=== PATIENT | male | born 1945 | race Caucasian/White ===

== ENCOUNTER 2017-01-23 09:50 | Inpatient (IN) | payer OTHER, BC ==
[~2017-01-23] VITALS: Ht 180.3 cm; Wt 113.5 kg
[~2017-01-23 09:50] MED LIST: ALLEGRA ALLERG180 MG PO; ALLOPURINOL100 MG PO; ASPIR 8181 M1 PO; ASPIRIN81 M2 PO; CALCITRIOL0.25 MCG PO; CARDIZEM CD,CA180 MG PO; CARDIZEM CD120 MG PO; CARDIZEM120 MG PO; CARDURA4 MG PO; CEFDINIR300 MG PO; CITALOPRAM HBR20 M1 PO; CITALOPRAM HBR20 MG PO; COZAAR25 MG PO; COZAAR50 MG PO; CYCLOBENZAPRINE5 MG PO; Cardizem CD,Cartia XT,Tiazac PO; DILTIAZEM 24HR180 MG PO; DOXAZOSIN MESYLA4 MG PO; EPLERENONE50 M1 PO; FEXOFENADINE HC60 M1 PO; FLUOXETINE HCL20 MG PO; FUROSEMIDE40 MG PO; GABAPENTIN100 MG PO; GABAPENTIN300 MG PO; GLIPIZIDE ER2.5 MG PO; GLIPIZIDE5 MG PO; HYDROCHLOROTHIA25 MG PO; HYDROXYZINE PAM50 MG PO; JANUVIA100 MG PO; KETOCONAZOLE60 GM TP; LABETALOL HCL200 MG PO; LABETALOL HCL300 MG PO; LISINOPRIL10 MG PO; LISINOPRIL20 MG PO; LOSARTAN POTAS100 MG PO; LOSARTAN POTASS50 MG PO; MYSOLINE50 MG PO; NASONEX17 GM BOTH NARES; NEPHRO-VITE,1 TABLET PO; NIACIN ER1000 MG PO; NIACIN500 M1 PO; NIASPAN1000 MG PO; NIFEDICAL XL30 MG PO; NIFEDIPINE ER30 MG PO; OXYCODONE HCL5 MG PO; PANTOPRAZOLE SO40 MG PO; PLAVIX75 MG PO; PRAVACHOL20 MG PO; PRAVASTATIN SOD20 MG PO; PRAVASTATIN SOD40 MG PO; PRAVASTATIN SOD80 MG PO; PRAZOSIN HCL2 MG PO; PRILOSEC20 MG PO; PRIMIDONE50 MG PO; PROCTOZONE-HC30 GM PR; RENVELA800 MG PO; SENNA-TIME S T1 EACH PO; SENSIPAR30 MG PO; SIMVASTATIN20 MG PO; SPIRONOLACTONE25 MG PO; TYLENOL EXTRA500 MG PO; VESICARE5 MG PO; VITAMIN D2000 UNIT PO; WARFARIN SODIUM5 MG PO; WARFARIN SODIUM6 MG PO; ZEMPLAR1 MCG PO; ZYLOPRIM100 MG PO; [UNRECOGNIZED DRUG - OTHER] PO
[2017-03-07] MEDS ORDERED: CARDIZEM CD,CA180 MG PO (10:34)
[2017-03-12] MEDS ORDERED: ALLOPURINOL100 MG PO (08:41)
[2017-03-12] MEDS ORDERED: NIZORAL 2% CREA15 GM TP (08:48)
[2017-03-12] MEDS ORDERED: NASONEX17 GM BOTH NARES (08:50)
[2017-03-12] MEDS ORDERED: NEPHRO-VITE,1 TABLET PO (08:50)
[2017-03-12] MEDS ORDERED: PRILOSEC20 MG PO (08:51)
[2017-03-12] MEDS ORDERED: MYSOLINE50 MG PO (08:51)
[2017-03-12] MEDS ORDERED: COUMADIN6 MG PO (08:54)
[2017-03-12] MEDS ORDERED: XALATAN2.5 ML BOTH EYES (09:53)
[2017-03-13 09:14] LABS: HEMATOCRIT 32.5 % (38.0-50.0); MCH 32.6 PG (29.0-34.0); MCHC 32.6 G/DL (30.0-36.0); MEAN PLAT.VOLUME 10.4 uM^3 (9.0-12.4); PLATELET COUNT 209 K/uL (156-360); RBC DIS.WIDTH-CV 14.9 % (11.8-14.6); RBC DIS.WIDTH-SD 54.5 % (39-53); RED BLOOD COUNT 3.25 M/uL (4.00-5.50); WHITE BLOOD COUNT 8.6 K/uL (4.1-10.2)
[2017-03-13 09:30] LABS: INTER. NORMALIZED RATIO 1.2; PROTHROMBIN TIME 11.8 (9.2-11.2); PTT 29.2 (25-32)
[2017-03-13 09:40] LABS: ANION GAP 13 MEQ/L (2-14); CHLORIDE 95 MEQ/L (99-109); GFR ESTIMATE (CALCULATED) 7 mL/min/; GLUCOSE 155 mg/dL (70-99); POTASSIUM 4.4 MEQ/L (3.7-5.4); SAMPLE HEMOLYSIS CHECK 0; SAMPLE ICTERIC CHECK 0; SAMPLE LIPEMIA CHECK 0; SODIUM 140 MEQ/L (136-147)
[2017-03-13 09:42] VITALS: BP 114/55
[2017-03-13 09:42] LABS: UREA NITROGEN (BUN) 39 mg/dL (9-23)
[2017-03-13 11:29] LABS: METH RESISTANT S AUREUS PCR NEGATIVE (NEGATIVE)
[2017-03-13 11:31] LABS: PROBE CHECK PASS; SPECIMEN PROCESSING CONTROL PASS
[2017-03-13 15:36] VITALS: BP 131/63
[2017-03-13 15:53] VITALS: BP 131/63
[2017-03-13 16:10] VITALS: BP 131/63
[2017-03-13 17:47] LABS: POINT-OF-CARE METER ID UU14188577
[2017-03-13 20:04] VITALS: BP 165/71
[2017-03-13 21:52] LABS: POINT-OF-CARE METER ID UU14188577
[2017-03-13 23:45] VITALS: BP 130/66
[2017-03-14 04:44] VITALS: BP 102/50
[2017-03-14 06:15] LABS: POINT-OF-CARE METER ID UU14188577
[2017-03-14 08:02] VITALS: BP 113/55
[2017-03-14 11:45] VITALS: BP 134/63
[2017-03-14 17:13] VITALS: BP 114/56
[2017-03-14 18:44] LABS: HEMATOCRIT 27.7 % (38.0-50.0); MCH 34.8 PG (29.0-34.0); MCHC 35.4 G/DL (30.0-36.0); MCV 98.2 FL (86-99); PLATELET COUNT 220 K/uL (156-360); RBC DIS.WIDTH-CV 15.3 % (11.8-14.6); RBC DIS.WIDTH-SD 54.1 % (39-53); RED BLOOD COUNT 2.82 M/uL (4.00-5.50)
[2017-03-14 18:46] LABS: WHITE BLOOD COUNT 17.5 K/uL (4.1-10.2)
[2017-03-14 18:54] LABS: CHLORIDE 95 mEq/L (99-109); SODIUM 135 mEq/L (136-147)
[2017-03-14 18:55] LABS: GLUCOSE 184 mg/dL (70-99)
[2017-03-14 18:57] LABS: ANION GAP 20 MEQ/L (2-14)
[2017-03-14 18:59] LABS: GFR ESTIMATE (CALCULATED) 5 mL/min/
[2017-03-14 19:05] LABS: UREA NITROGEN (BUN) 67 mg/dL (9-23)
[2017-03-14 23:46] VITALS: BP 124/61
[2017-03-15] VITALS (7 sets, daily range): BP systolic 107–132; BP diastolic 54–63
[2017-03-15 02:46] LABS: POINT-OF-CARE METER ID UU14188577
[2017-03-15] MEDS ORDERED: TIZANIDINE HCL4 MG PO (08:42)
[2017-03-15] MEDS ORDERED: HYDROCODON-ACE1 EAC7 PO (08:42)
[2017-03-15] MEDS ORDERED: COLACE100 MG PO (08:46)
[2017-03-15 11:56] LABS: POINT-OF-CARE METER ID UU14149397
[2017-03-15 21:44] LABS: POINT-OF-CARE METER ID UU14188577
[2017-03-15 22:20] LABS: HEMATOCRIT 27.1 % (38.0-50.0); MCH 33.6 PG (29.0-34.0); MCHC 33.9 G/DL (30.0-36.0); MCV 98.9 FL (86-99); MEAN PLAT.VOLUME 10.3 uM^3 (9.0-12.4); NRBC (%) 0.1 /100 WBC (0-0); PLATELET COUNT 189 K/uL (156-360); RBC DIS.WIDTH-CV 15.5 % (11.8-14.6); RBC DIS.WIDTH-SD 54.8 % (39-53); RED BLOOD COUNT 2.74 M/uL (4.00-5.50); WHITE BLOOD COUNT 14.2 K/uL (4.1-10.2)
[2017-03-15 22:34] LABS: CHLORIDE 92 mEq/L (99-109); POTASSIUM 5.5 mEq/L (3.7-5.4); SODIUM 131 mEq/L (136-147)
[2017-03-15 22:37] LABS: GLUCOSE 166 mg/dL (70-99)
[2017-03-15 22:38] LABS: ANION GAP 14 MEQ/L (2-14); TOTAL BILIRUBIN 0.6 mg/dL (0.0-1.0)
[2017-03-15 22:40] LABS: ALKALINE PHOSPHATASE 103 IU/L (3-129); GFR ESTIMATE (CALCULATED) 6 mL/min/
[2017-03-15 22:41] LABS: UREA NITROGEN (BUN) 55 mg/dL (9-23)
[2017-03-15 22:42] LABS: DIRECT BILIRUBIN 0.2 mg/dL (0.0-0.3)
[2017-03-16 04:38] VITALS: BP 109/52
[2017-03-16 08:37] VITALS: BP 134/60
[2017-03-16 11:50] LABS: POINT-OF-CARE METER ID UU14188577
[2017-03-16 12:18] VITALS: BP 130/59
[2017-03-16 14:39] LABS: EOSINOPHIL (%) 0.6 % (0-5); EOSINOPHIL COUNT 0.1 K/uL (0-0.3); IMMATURE GRANULOCYTE (%) 0.6 % (0.0-0.7); IMMATURE GRANULOCYTE COUNT 0.1 K/uL; INSTRUMENT ABS NEUTROPHIL CT 10.6 K/uL; LYMPHOCYTE COUNT 1.7 K/uL (1.0-2.8); MCH 34.5 PG (29.0-34.0); MCHC 34.8 G/DL (30.0-36.0); MCV 99.2 FL (86-99); MONOCYTE (%) 12.3 % (3-12); MONOCYTE COUNT 1.8 K/uL (0-0.8); NEUTROPHIL (%) 74.8 % (45-76); NEUTROPHIL COUNT 10.6 K/uL (1.8-6.4); PLATELET COUNT 185 K/uL (156-360); RBC DIS.WIDTH-CV 15.5 % (11.8-14.6); RBC DIS.WIDTH-SD 54.9 % (39-53); RED BLOOD COUNT 2.52 M/uL (4.00-5.50); WHITE BLOOD COUNT 14.2 K/uL (4.1-10.2)
[2017-03-16 14:50] LABS: INTER. NORMALIZED RATIO 1.1; PROTHROMBIN TIME 11.2 (9.2-11.2)
[2017-03-16 14:56] LABS: ANION GAP 14 MEQ/L (2-14); CHLORIDE 91 MEQ/L (99-109); GFR ESTIMATE (CALCULATED) 6 mL/min/; GLUCOSE 144 mg/dL (70-99); POTASSIUM 5.2 MEQ/L (3.7-5.4); SAMPLE HEMOLYSIS CHECK 0; SAMPLE ICTERIC CHECK 0; SAMPLE LIPEMIA CHECK 0; SODIUM 128 MEQ/L (136-147); UREA NITROGEN (BUN) 73 mg/dL (9-23)
[2017-03-16 20:07] VITALS: BP 149/66
[2017-03-16 22:55] LABS: POINT-OF-CARE METER ID UU14188577
[2017-03-16 23:48] VITALS: BP 123/67
[2017-03-17 03:35] VITALS: BP 127/59
[2017-03-17 05:00] LABS: INTER. NORMALIZED RATIO 1.1; PROTHROMBIN TIME 11.6 (9.2-11.2)
[2017-03-17 07:20] LABS: POINT-OF-CARE METER ID UU14188577
[2017-03-17 08:25] VITALS: BP 148/69
[2017-03-17 12:16] VITALS: BP 149/65
[2017-03-17 16:12] VITALS: BP 127/62
[2017-03-17 19:25] VITALS: BP 124/58
[2017-03-17 23:39] VITALS: BP 145/63
[2017-03-18 08:13] VITALS: BP 140/65
[2017-03-18 10:48] LABS: HEMATOCRIT 25.6 % (38.0-50.0); MEAN PLAT.VOLUME 10.7 uM^3 (9.0-12.4); PLATELET COUNT 180 K/uL (156-360); RBC DIS.WIDTH-CV 15.7 % (11.8-14.6); RBC DIS.WIDTH-SD 56.8 % (39-53); RED BLOOD COUNT 2.56 M/uL (4.00-5.50); WHITE BLOOD COUNT 12.4 K/uL (4.1-10.2)
[2017-03-18 11:11] LABS: ANION GAP 19 MEQ/L (2-14); CHLORIDE 94 MEQ/L (99-109); GFR ESTIMATE (CALCULATED) 7 mL/min/; GLUCOSE 148 mg/dL (70-99); POTASSIUM 4.7 MEQ/L (3.7-5.4); SAMPLE HEMOLYSIS CHECK 0; SAMPLE ICTERIC CHECK 0; SAMPLE LIPEMIA CHECK 0; SODIUM 134 MEQ/L (136-147); UREA NITROGEN (BUN) 76 mg/dL (9-23)
[2017-03-18 11:58] LABS: POINT-OF-CARE METER ID UU14149397
[2017-03-18 14:30] LABS: INTER. NORMALIZED RATIO 1.1; PROTHROMBIN TIME 11.5 (9.2-11.2)
[2017-03-18 15:58] VITALS: BP 114/56
[2017-03-18 16:20] LABS: POINT-OF-CARE METER ID UU14149397
[2017-03-18 21:00] LABS: ADD MIUA? YES; BILIRUBIN NEGATIVE; BLOOD LARGE; COLOR YELLOW ((YELLOW)); GLUCOSE (STRIP) NEGATIVE; KETONES NEGATIVE; LEUKOCYTES SMALL; NITRITE NEGATIVE; PROTEIN (STRIP) 100; SPECIFIC GRAVITY 1.014 (1.000-1.030); UROBILINOGEN 0.2 MG/DL (0.2-1.0)
[2017-03-18 21:06] LABS: BACTERIA RARE /HPF; EPITHELIAL CELLS RARE /HPF; MUCUS NONE SEEN /LPF; RED BLOOD CELLS TNTC /HPF (0-5); WHITE BLOOD CELLS TNTC /HPF (0-5)
[2017-03-18 23:11] VITALS: BP 179/79
[2017-03-19 06:00] LABS: POINT-OF-CARE METER ID UU14149397
[2017-03-19 06:22] LABS: INTER. NORMALIZED RATIO 1.1; PROTHROMBIN TIME 11.6 (9.2-11.2)
[2017-03-19 06:44] LABS: ANION GAP 19 MEQ/L (2-14); CHLORIDE 94 MEQ/L (99-109); GFR ESTIMATE (CALCULATED) 6 mL/min/; GLUCOSE 111 mg/dL (70-99); POTASSIUM 4.6 MEQ/L (3.7-5.4); SAMPLE HEMOLYSIS CHECK 0; SAMPLE ICTERIC CHECK 0; SAMPLE LIPEMIA CHECK 0; SODIUM 134 MEQ/L (136-147); UREA NITROGEN (BUN) 96 mg/dL (9-23)
[2017-03-19] MEDS ORDERED: TRAMADOL HCL50 MG PO (12:29)
[2017-03-19 12:39] LABS: POINT-OF-CARE METER ID UU14149397
[2017-03-19] MEDS ORDERED: SODIUM CHLORIDE1 G1 PO (16:48)
[2017-03-19] MEDS ORDERED: ZANAFLEX4 MG PO (16:49)
[2017-03-19] MEDS ORDERED: FLOMAX0.4 MG PO (16:50)
[2017-03-19] MEDS ORDERED: NORCO 5/3251 TABLET PO (16:51)
[2017-03-19] MEDS ORDERED: LORATADINE10 M2 PO ×2 (16:52→16:53)
[2017-03-19] MEDS ORDERED: TYLENOL REGULA325 MG PO (16:52)
[2017-03-19] MEDS ORDERED: BAYER CHEWABLE81 MG PO (16:54)
[2017-03-19] MEDS ORDERED: NOVOLOG 10100 UNITS/ SC (16:54)
[2017-03-19] MEDS ORDERED: FLONASE16 G1 BOTH NARES (16:54)
[2017-03-19] MEDS ORDERED: PRAVASTATIN SOD40 MG PO (16:55)
[2017-03-19] MEDS ORDERED: VITAMIN D2000 UNI1 PO (16:56)
[2017-03-19] MEDS ORDERED: PROTONIX40 MG PO (16:56)
[2017-03-19] MEDS ORDERED: SENSIPAR30 MG PO (16:57)
[2017-03-27 10:08] LABS: POINT-OF-CARE USER ID NUTSLF44
== END 2017-03-19 15:57 | DRG 28 ==
LOC: 2SOUTH 09:50 → 3EAST 03-13 08:37 → 2SOUTH 03-13 10:35 → 3EAST 03-13 15:25
PROVIDERS: Hospitalist; Internal Medicine Nephrology; Neurological Surgery; Physician Assistant
PROC: 00BY0ZZ Excision of Lumbar Spinal Cord, Open Approach (ICD-10-PCS; principal; 2017-03-13)
PROC: 5A1D60Z (ICD-10-PCS; 2017-03-14)
PROC: 0T9B70Z Drainage of Bladder with Drainage Device, Via Natural or Artificial Opening (ICD-10-PCS; 2017-03-16)
DX: D43.4 Neoplasm of uncertain behavior of spinal cord (principal); G83.4 Cauda equina syndrome; I12.0 Hypertensive chronic kidney disease with stage 5 chronic kidney disease or end stage renal disease; N18.6 End stage renal disease; R41.82 Altered mental status, unspecified; E87.1 Hypo-osmolality and hyponatremia; E87.5 Hyperkalemia; E87.70 Fluid overload, unspecified; E11.22 Type 2 diabetes mellitus with diabetic chronic kidney disease; E11.40 Type 2 diabetes mellitus with diabetic neuropathy, unspecified; G95.9 Disease of spinal cord, unspecified; G89.18 Other acute postprocedural pain; I48.91 Unspecified atrial fibrillation; I25.10 Atherosclerotic heart disease of native coronary artery without angina pectoris; G47.33 Obstructive sleep apnea (adult) (pediatric); N40.1 Benign prostatic hyperplasia with lower urinary tract symptoms; R33.9 Retention of urine, unspecified; E78.2 Mixed hyperlipidemia; K59.00 Constipation, unspecified; M10.9 Gout, unspecified; E66.9 Obesity, unspecified; Z68.34 Body mass index [BMI] 34.0-34.9, adult; Z99.2 Dependence on renal dialysis; Z79.01 Long term (current) use of anticoagulants; Z85.528 Personal history of other malignant neoplasm of kidney; Z90.5 Acquired absence of kidney; Z87.891 Personal history of nicotine dependence
CPT/HCPCS: 36415; 70450; 71250; 72020; 74176; 76000; 80048; 80048 91; 80069; 80076; 81003; 82140; 82948; 83605; 85025; 85027; 85610; 85730; 86900; 86901; 87040; 87641; 88307; 88312; 88331; 94799; 97530 GP; J0330; J0690; J0881; J1170; J1580; J1815; J2250; J2405; J2543; J2930; J3010; J3370; J3480; J7050; S0020

== ENCOUNTER 2017-03-08 07:26 | Day surgery (SDC) | payer OTHER, BC ==
[~2017-03-08] VITALS: Ht 180.3 cm; Wt 109.0 kg
[2017-03-08 09:48] LABS: METH RESISTANT S AUREUS PCR NEGATIVE (NEGATIVE)
[2017-03-08 09:49] LABS: PROBE CHECK PASS; SPECIMEN PROCESSING CONTROL PASS
== END 2017-03-08 09:59 | disposition home or self-care (01) ==
LOC: CATH 07:26 → EDSTATUS 08:30 → CATH 09:59
PROVIDERS: Surgery
DX: T82.858A Stenosis of other vascular prosthetic devices, implants and grafts, initial encounter (principal); I12.0 Hypertensive chronic kidney disease with stage 5 chronic kidney disease or end stage renal disease; N18.6 End stage renal disease; Z99.2 Dependence on renal dialysis; E11.22 Type 2 diabetes mellitus with diabetic chronic kidney disease; G47.33 Obstructive sleep apnea (adult) (pediatric); I48.91 Unspecified atrial fibrillation; Z85.53 Personal history of malignant neoplasm of renal pelvis; Z85.828 Personal history of other malignant neoplasm of skin; Z79.01 Long term (current) use of anticoagulants; Z79.82 Long term (current) use of aspirin
CPT/HCPCS: 87641; C1725; C1769; C1894; J1644; J2250; J3010

== ENCOUNTER 2017-03-19 11:52 | Inpatient (IN) | payer OTHER, BC ==
[~2017-03-19] VITALS: Ht 180.3 cm; Wt 105.5 kg
[~2017-03-19 11:52] MED LIST changes: +COLACE100 MG PO; +COUMADIN6 MG PO; +HYDROCODON-ACE1 EAC7 PO; +NIZORAL 2% CREA15 GM TP; +TIZANIDINE HCL4 MG PO; +XALATAN2.5 ML BOTH EYES
[2017-03-19] MEDS ORDERED: TRAMADOL HCL50 MG PO (12:29)
[2017-03-19 16:00] VITALS: BP 110/55
[2017-03-19] MEDS ORDERED: SODIUM CHLORIDE1 G1 PO (16:48)
[2017-03-19] MEDS ORDERED: ZANAFLEX4 MG PO (16:49)
[2017-03-19] MEDS ORDERED: FLOMAX0.4 MG PO (16:50)
[2017-03-19] MEDS ORDERED: NORCO 5/3251 TABLET PO (16:51)
[2017-03-19] MEDS ORDERED: LORATADINE10 M2 PO ×2 (16:52→16:53)
[2017-03-19] MEDS ORDERED: TYLENOL REGULA325 MG PO (16:52)
[2017-03-19 16:53] LABS: POINT-OF-CARE METER ID UU13113720
[2017-03-19] MEDS ORDERED: FLONASE16 G1 BOTH NARES (16:54)
[2017-03-19] MEDS ORDERED: BAYER CHEWABLE81 MG PO (16:54)
[2017-03-19] MEDS ORDERED: NOVOLOG 10100 UNITS/ SC (16:54)
[2017-03-19] MEDS ORDERED: PRAVASTATIN SOD40 MG PO (16:55)
[2017-03-19] MEDS ORDERED: VITAMIN D2000 UNI1 PO (16:56)
[2017-03-19] MEDS ORDERED: PROTONIX40 MG PO (16:56)
[2017-03-19] MEDS ORDERED: SENSIPAR30 MG PO (16:57)
[2017-03-19 19:36] LABS: HEMATOCRIT 25.6 % (38.0-50.0); MCH 33.2 PG (29.0-34.0); MCHC 33.6 G/DL (30.0-36.0); MCV 98.8 FL (86-99); MEAN PLAT.VOLUME 10.6 uM^3 (9.0-12.4); NRBC (%) 0.3 /100 WBC (0-0); PLATELET COUNT 202 K/uL (156-360); RBC DIS.WIDTH-CV 15.7 % (11.8-14.6); RBC DIS.WIDTH-SD 55.4 % (39-53); RED BLOOD COUNT 2.59 M/uL (4.00-5.50)
[2017-03-19 20:05] LABS: ALKALINE PHOSPHATASE 97 IU/L (3-129); ANION GAP 14 MEQ/L (2-14); CHLORIDE 97 MEQ/L (99-109); GLUCOSE 109 mg/dL (70-99); POTASSIUM 4.3 MEQ/L (3.7-5.4); SAMPLE HEMOLYSIS CHECK 0; SAMPLE ICTERIC CHECK 0; SAMPLE LIPEMIA CHECK 0; SODIUM 136 MEQ/L (136-147); TOTAL BILIRUBIN 0.4 MG/DL (0.0-1.0)
[2017-03-19 20:15] LABS: GFR ESTIMATE (CALCULATED) 11 mL/min/; UREA NITROGEN (BUN) 45 mg/dL (9-23)
[2017-03-19 21:32] LABS: POINT-OF-CARE METER ID UU13113720
[2017-03-20] VITALS: BP 115/57
[2017-03-20 04:25] VITALS: BP 135/62
[2017-03-20 08:00] LABS: POINT-OF-CARE METER ID UU13113720; POINT-OF-CARE USER ID AHSSSJB31
[2017-03-20 12:07] LABS: POINT-OF-CARE METER ID UU13113720; POINT-OF-CARE USER ID AHSSSJB31
[2017-03-20 12:41] LABS: INTER. NORMALIZED RATIO 1.3; PROTHROMBIN TIME 13.5 (9.2-11.2)
[2017-03-20 15:50] VITALS: BP 114/58
[2017-03-20 16:31] LABS: POINT-OF-CARE METER ID UU13113720
[2017-03-20 21:22] LABS: POINT-OF-CARE METER ID UU13113720
[2017-03-21 05:58] VITALS: BP 141/65
[2017-03-21 06:32] LABS: POINT-OF-CARE METER ID UU13113720
[2017-03-21 08:39] LABS: EOSINOPHIL (%) 2.6 % (0-5); EOSINOPHIL COUNT 0.3 K/uL (0-0.3); HEMATOCRIT 22.3 % (38.0-50.0); IMMATURE GRANULOCYTE (%) 0.9 % (0.0-0.7); IMMATURE GRANULOCYTE COUNT 0.1 K/uL; INSTRUMENT ABS NEUTROPHIL CT 10.3 K/uL; LYMPHOCYTE COUNT 1.1 K/uL (1.0-2.8); MCH 32.5 PG (29.0-34.0); MCHC 33.2 G/DL (30.0-36.0); MCV 97.8 FL (86-99); MEAN PLAT.VOLUME 10.7 uM^3 (9.0-12.4); MONOCYTE (%) 10.2 % (3-12); MONOCYTE COUNT 1.4 K/uL (0-0.8); NEUTROPHIL (%) 77.6 % (45-76); NEUTROPHIL COUNT 10.3 K/uL (1.8-6.4); PLATELET COUNT 227 K/uL (156-360); RBC DIS.WIDTH-CV 15.5 % (11.8-14.6); RBC DIS.WIDTH-SD 54.8 % (39-53); RED BLOOD COUNT 2.28 M/uL (4.00-5.50); WHITE BLOOD COUNT 13.3 K/uL (4.1-10.2)
[2017-03-21 08:50] LABS: INTER. NORMALIZED RATIO 1.4; PROTHROMBIN TIME 13.9 (9.2-11.2)
[2017-03-21 08:54] LABS: CHLORIDE 96 mEq/L (99-109); SODIUM 133 mEq/L (136-147)
[2017-03-21 08:57] LABS: ANION GAP 18 MEQ/L (2-14)
[2017-03-21 09:08] LABS: GFR ESTIMATE (CALCULATED) 6 mL/min/; GLUCOSE 183 mg/dL (70-99); UREA NITROGEN (BUN) 86 mg/dL (9-23)
[2017-03-21 12:54] VITALS: BP 148/66
[2017-03-21 13:27] LABS: POINT-OF-CARE METER ID UU13113720
[2017-03-21 14:45] VITALS: BP 141/65
[2017-03-21 15:53] VITALS: BP 139/65
[2017-03-21 16:23] LABS: POINT-OF-CARE METER ID UU13113720
[2017-03-21 19:22] LABS: POINT-OF-CARE METER ID UU13113720
[2017-03-21 19:51] VITALS: BP 93/51
[2017-03-21 21:25] LABS: POINT-OF-CARE METER ID UU13113720
[2017-03-21 22:07] VITALS: BP 102/55
[2017-03-22 05:22] VITALS: BP 113/56
[2017-03-22 06:46] LABS: POINT-OF-CARE METER ID UU13113720; POINT-OF-CARE USER ID ENVGAF
[2017-03-22 06:52] LABS: INTER. NORMALIZED RATIO 1.6
[2017-03-22 11:21] LABS: POINT-OF-CARE METER ID UU13113720; POINT-OF-CARE USER ID ENVGAF
[2017-03-22 13:00] VITALS: BP 111/56
[2017-03-22 16:41] LABS: POINT-OF-CARE METER ID UU13113720
[2017-03-22 16:52] VITALS: BP 132/62
[2017-03-22 21:16] LABS: POINT-OF-CARE METER ID UU14174215
[2017-03-22 21:18] VITALS: BP 106/52
[2017-03-23] VITALS (8 sets, daily range): BP systolic 90–133; BP diastolic 50–68
[2017-03-23 06:20] LABS: POINT-OF-CARE METER ID UU13113720
[2017-03-23 09:22] LABS: EOSINOPHIL (%) 2.4 % (0-5); EOSINOPHIL COUNT 0.3 K/uL (0-0.3); HEMATOCRIT 20.6 % (38.0-50.0); IMMATURE GRANULOCYTE (%) 0.8 % (0.0-0.7); IMMATURE GRANULOCYTE COUNT 0.1 K/uL; INSTRUMENT ABS NEUTROPHIL CT 10.6 K/uL; LYMPHOCYTE COUNT 1.2 K/uL (1.0-2.8); MEAN PLAT.VOLUME 11.2 uM^3 (9.0-12.4); MONOCYTE (%) 9.5 % (3-12); MONOCYTE COUNT 1.3 K/uL (0-0.8); NEUTROPHIL (%) 77.9 % (45-76); NEUTROPHIL COUNT 10.6 K/uL (1.8-6.4); PLATELET COUNT 236 K/uL (156-360); RBC DIS.WIDTH-CV 15.9 % (11.8-14.6); RBC DIS.WIDTH-SD 57.5 % (39-53); RED BLOOD COUNT 2.06 M/uL (4.00-5.50); WHITE BLOOD COUNT 13.5 K/uL (4.1-10.2)
[2017-03-23 09:26] LABS: CHLORIDE 96 mEq/L (99-109); POTASSIUM 4.2 mEq/L (3.7-5.4); SODIUM 133 mEq/L (136-147)
[2017-03-23 09:28] LABS: GLUCOSE 171 mg/dL (70-99)
[2017-03-23 09:30] LABS: ANION GAP 19 MEQ/L (2-14)
[2017-03-23 09:32] LABS: GFR ESTIMATE (CALCULATED) 6 mL/min/
[2017-03-23 09:33] LABS: UREA NITROGEN (BUN) 80 mg/dL (9-23)
[2017-03-23 12:25] LABS: POINT-OF-CARE METER ID UU13113720
[2017-03-23 15:40] LABS: HEMATOCRIT 21.2 % (38.0-50.0); INTER. NORMALIZED RATIO 1.9; MCV 97.7 FL (86-99); PROTHROMBIN TIME 19.7 (9.2-11.2)
[2017-03-23 17:12] LABS: POINT-OF-CARE METER ID UU13113720
[2017-03-23 18:22] LABS: TROP-I INTERPRETATION NEGATIVE; TROPONIN-I 0.03 ng/mL (0.0-0.30)
[2017-03-23 18:24] LABS: ANION GAP 14 MEQ/L (2-14); CHLORIDE 98 MEQ/L (99-109); GFR ESTIMATE (CALCULATED) 13 mL/min/; GLUCOSE 151 mg/dL (70-99); POTASSIUM 4.1 MEQ/L (3.7-5.4); SAMPLE HEMOLYSIS CHECK 0; SAMPLE ICTERIC CHECK 0; SAMPLE LIPEMIA CHECK 0; SODIUM 137 MEQ/L (136-147); UREA NITROGEN (BUN) 35 mg/dL (9-23)
== END 2017-03-23 17:26 | DRG 949 ==
LOC: 3WEST 11:52
PROVIDERS: Hospitalist; Internal Medicine Nephrology; Psychiatry & Neurology Neurology
PROC: F07M0ZZ Range of Motion and Joint Mobility Treatment of Musculoskeletal System - Whole Body (ICD-10-PCS; principal; 2017-03-19)
PROC: 5A1D60Z (ICD-10-PCS; 2017-03-21)
PROC: 30233N1 Transfusion of Nonautologous Red Blood Cells into Peripheral Vein, Percutaneous Approach (ICD-10-PCS; 2017-03-23)
DX: Z48.89 Encounter for other specified surgical aftercare (principal); I48.0 Paroxysmal atrial fibrillation; R94.31 Abnormal electrocardiogram [ECG] [EKG]; R26.2 Difficulty in walking, not elsewhere classified; R53.1 Weakness; R53.83 Other fatigue; I12.0 Hypertensive chronic kidney disease with stage 5 chronic kidney disease or end stage renal disease; N18.6 End stage renal disease; E11.22 Type 2 diabetes mellitus with diabetic chronic kidney disease; Z99.2 Dependence on renal dialysis; G47.33 Obstructive sleep apnea (adult) (pediatric); Z99.81 Dependence on supplemental oxygen; D62 Acute posthemorrhagic anemia; E87.1 Hypo-osmolality and hyponatremia; R33.9 Retention of urine, unspecified; G89.18 Other acute postprocedural pain; E11.42 Type 2 diabetes mellitus with diabetic polyneuropathy; I25.10 Atherosclerotic heart disease of native coronary artery without angina pectoris; E66.9 Obesity, unspecified; Z68.34 Body mass index [BMI] 34.0-34.9, adult; D43.4 Neoplasm of uncertain behavior of spinal cord; Z95.5 Presence of coronary angioplasty implant and graft; E78.5 Hyperlipidemia, unspecified; M19.90 Unspecified osteoarthritis, unspecified site; Z79.4 Long term (current) use of insulin; Z87.891 Personal history of nicotine dependence; Z79.01 Long term (current) use of anticoagulants; Z85.528 Personal history of other malignant neoplasm of kidney; Z90.5 Acquired absence of kidney
CPT/HCPCS: 71010; 80048 91; 80053; 80069; 82948; 83735; 83880; 84443; 84484; 85014; 85018; 85025; 85027; 85610; 86900; 86901; 86920; 93005; 97110 GO; 97530 GP; J1815; J7030; P9016

== ENCOUNTER 2017-03-23 17:19 | Inpatient (IN) | payer OTHER, BC ==
[2017-03-23] VITALS (9 sets, daily range): BP systolic 81–104; BP diastolic 43–56
[~2017-03-23] VITALS: Ht 180.3 cm; Wt 116.0 kg
[~2017-03-23 17:19] MED LIST changes: +BAYER CHEWABLE81 MG PO; +FLOMAX0.4 MG PO; +FLONASE16 G1 BOTH NARES; +LORATADINE10 M2 PO; +NORCO 5/3251 TABLET PO; +NOVOLOG 10100 UNITS/ SC; +PROTONIX40 MG PO; +SODIUM CHLORIDE1 G1 PO; +TRAMADOL HCL50 MG PO; +TYLENOL REGULA325 MG PO; +VITAMIN D2000 UNI1 PO; +ZANAFLEX4 MG PO
[2017-03-23 19:00] LABS: POINT-OF-CARE METER ID UU14174216
[2017-03-23 21:59] LABS: POINT-OF-CARE METER ID UU14174216
[2017-03-24] VITALS (9 sets, daily range): BP systolic 109–194; BP diastolic 56–84
[2017-03-24 06:26] LABS: HEMATOCRIT 21.7 % (38.0-50.0); MCH 31.8 PG (29.0-34.0); MCHC 32.3 G/DL (30.0-36.0); MCV 98.6 FL (86-99); MEAN PLAT.VOLUME 11.2 uM^3 (9.0-12.4); NRBC (%) 0.2 /100 WBC (0-0); PLATELET COUNT 249 K/uL (156-360); RBC DIS.WIDTH-SD 64.5 % (39-53); WHITE BLOOD COUNT 12.2 K/uL (4.1-10.2)
[2017-03-24 06:32] LABS: Estimated Average Glucose 131 mg/dL (70-123); HEMOGLOBIN A1c (GLYCOHEMOGLOB) 6.2 % HGB (Below 5.7)
[2017-03-24 06:46] LABS: PROTHROMBIN TIME 20.8 (9.2-11.2)
[2017-03-24 07:05] LABS: ANION GAP 14 MEQ/L (2-14); CHLORIDE 99 MEQ/L (99-109); GFR ESTIMATE (CALCULATED) 10 mL/min/; POTASSIUM 4.5 MEQ/L (3.7-5.4); SAMPLE HEMOLYSIS CHECK 1; SAMPLE ICTERIC CHECK 0; SAMPLE LIPEMIA CHECK 0; SODIUM 137 MEQ/L (136-147); UREA NITROGEN (BUN) 48 mg/dL (9-23)
[2017-03-24 07:06] LABS: GLUCOSE 94 mg/dL (70-99)
[2017-03-24 11:56] LABS: POINT-OF-CARE METER ID UU14174216
[2017-03-24 16:46] LABS: POINT-OF-CARE METER ID UU14174216
[2017-03-25 04:00] VITALS: BP 157/78
[2017-03-25 08:43] VITALS: BP 158/74
[2017-03-25 09:40] LABS: HEMATOCRIT 25.9 % (38.0-50.0); MCHC 32.8 G/DL (30.0-36.0); MCV 97.4 FL (86-99); MEAN PLAT.VOLUME 10.7 uM^3 (9.0-12.4); PLATELET COUNT 306 K/uL (156-360); RBC DIS.WIDTH-CV 17.8 % (11.8-14.6); RBC DIS.WIDTH-SD 63.9 % (39-53)
[2017-03-25 09:41] LABS: RED BLOOD COUNT 2.66 M/uL (4.00-5.50); WHITE BLOOD COUNT 17.3 K/uL (4.1-10.2)
[2017-03-25 10:06] LABS: ANION GAP 14 MEQ/L (2-14); CHLORIDE 98 MEQ/L (99-109); GLUCOSE 108 mg/dL (70-99); POTASSIUM 4.6 MEQ/L (3.7-5.4); SAMPLE HEMOLYSIS CHECK 0; SAMPLE ICTERIC CHECK 0; SAMPLE LIPEMIA CHECK 0; SODIUM 134 MEQ/L (136-147); UREA NITROGEN (BUN) 64 mg/dL (9-23); VANCOMYCIN, TROUGH 26.2 MCG/ML (10-20)
[2017-03-25 10:07] LABS: GFR ESTIMATE (CALCULATED) 7 mL/min/
[2017-03-25 11:25] VITALS: BP 154/69
[2017-03-25 11:51] LABS: POINT-OF-CARE METER ID UU14174216
[2017-03-25 13:55] LABS: ADD MIUA? YES; BILIRUBIN NEGATIVE; BLOOD LARGE; COLOR YELLOW ((YELLOW)); GLUCOSE (STRIP) 50; KETONES NEGATIVE; LEUKOCYTES LARGE; NITRITE NEGATIVE; PROTEIN (STRIP) 100; SPECIFIC GRAVITY 1.011 (1.000-1.030); UROBILINOGEN 0.2 MG/DL (0.2-1.0)
[2017-03-25 14:12] LABS: RED BLOOD CELLS TNTC /HPF (0-5); WHITE BLOOD CELLS TNTC /HPF (0-5)
[2017-03-25 14:13] LABS: BACTERIA 1+ /HPF; CASTS NONE SEEN /LPF; CRYSTALS NONE SEEN; EPITHELIAL CELLS RARE /HPF; MUCUS NONE SEEN /LPF; UCUL ADDED? YES
[2017-03-25 16:35] LABS: POINT-OF-CARE METER ID UU14174216
[2017-03-25 16:52] VITALS: BP 160/71
[2017-03-25 20:00] VITALS: BP 154/66
[2017-03-25 23:55] VITALS: BP 137/65
[2017-03-26 04:05] VITALS: BP 163/76
[2017-03-26 08:44] LABS: HEMATOCRIT 25.1 % (38.0-50.0); MCH 31.7 PG (29.0-34.0); MCHC 33.1 G/DL (30.0-36.0); MCV 95.8 FL (86-99); MEAN PLAT.VOLUME 10.9 uM^3 (9.0-12.4); PLATELET COUNT 306 K/uL (156-360); RBC DIS.WIDTH-CV 17.5 % (11.8-14.6); RBC DIS.WIDTH-SD 61.8 % (39-53); RED BLOOD COUNT 2.62 M/uL (4.00-5.50); WHITE BLOOD COUNT 16.9 K/uL (4.1-10.2)
[2017-03-26 08:55] LABS: INTER. NORMALIZED RATIO 1.9; PROTHROMBIN TIME 19.9 (9.2-11.2)
[2017-03-26 08:56] LABS: ANION GAP 16 MEQ/L (2-14); CHLORIDE 98 MEQ/L (99-109); POTASSIUM 4.4 MEQ/L (3.7-5.4); SAMPLE HEMOLYSIS CHECK 0; SAMPLE ICTERIC CHECK 0; SAMPLE LIPEMIA CHECK 0; SODIUM 133 MEQ/L (136-147)
[2017-03-26 09:04] LABS: GFR ESTIMATE (CALCULATED) 6 mL/min/; GLUCOSE 196 mg/dL (70-99); UREA NITROGEN (BUN) 79 mg/dL (9-23)
[2017-03-26 12:55] VITALS: BP 142/63
[2017-03-26 13:05] LABS: POINT-OF-CARE METER ID UU13113781
[2017-03-26 16:50] VITALS: BP 137/73
[2017-03-26 19:30] VITALS: BP 91/57
[2017-03-26 20:40] LABS: POINT-OF-CARE METER ID UU13113781
[2017-03-27] VITALS (7 sets, daily range): BP systolic 94–138; BP diastolic 50–63
[2017-03-27 08:11] LABS: POINT-OF-CARE METER ID UU14174216; POINT-OF-CARE USER ID ENVKC36
[2017-03-27 09:49] LABS: POC NON-PRINT COM 1 ND
[2017-03-27 12:19] LABS: POINT-OF-CARE METER ID UU13113781; POINT-OF-CARE USER ID ENVKC36
[2017-03-27 12:54] LABS: WHITE BLOOD COUNT 14.5 K/uL (4.1-10.2)
[2017-03-27 12:55] LABS: HEMATOCRIT 24.3 % (38.0-50.0); MCH 31.6 PG (29.0-34.0); MCHC 32.5 G/DL (30.0-36.0); MCV 97.2 FL (86-99); MEAN PLAT.VOLUME 11.1 uM^3 (9.0-12.4); PLATELET COUNT 313 K/uL (156-360); RBC DIS.WIDTH-CV 17.3 % (11.8-14.6)
[2017-03-27 13:14] LABS: ANION GAP 11 MEQ/L (2-14); CHLORIDE 98 MEQ/L (99-109); GLUCOSE 124 mg/dL (70-99); POTASSIUM 4.4 MEQ/L (3.7-5.4); SAMPLE HEMOLYSIS CHECK 0; SAMPLE ICTERIC CHECK 0; SAMPLE LIPEMIA CHECK 0; SODIUM 135 MEQ/L (136-147); UREA NITROGEN (BUN) 46 mg/dL (9-23); VANCOMYCIN, TROUGH 17.7 MCG/ML (10-20)
[2017-03-27 13:22] LABS: GFR ESTIMATE (CALCULATED) 8 mL/min/
[2017-03-27 16:27] LABS: POINT-OF-CARE METER ID UU14174216; POINT-OF-CARE USER ID ENVKC36
[2017-03-27 17:05] LABS: INTER. NORMALIZED RATIO 1.6; PROTHROMBIN TIME 16.3 (9.2-11.2)
[2017-03-27 21:13] LABS: POINT-OF-CARE METER ID UU13113781
[2017-03-28 00:38] VITALS: BP 110/57
[2017-03-28 04:03] VITALS: BP 120/58
[2017-03-28 05:29] LABS: BASOPHIL COUNT 0.1 K/uL (0-0.1); EOSINOPHIL (%) 2.1 % (0-5); EOSINOPHIL COUNT 0.3 K/uL (0-0.3); HEMATOCRIT 23.5 % (38.0-50.0); IMMATURE GRANULOCYTE (%) 0.6 % (0.0-0.7); IMMATURE GRANULOCYTE COUNT 0.1 K/uL; INSTRUMENT ABS NEUTROPHIL CT 10.7 K/uL; LYMPHOCYTE COUNT 1.2 K/uL (1.0-2.8); MCH 32.1 PG (29.0-34.0); MCHC 32.8 G/DL (30.0-36.0); MCV 97.9 FL (86-99); MEAN PLAT.VOLUME 11.5 uM^3 (9.0-12.4); MONOCYTE (%) 10.2 % (3-12); MONOCYTE COUNT 1.4 K/uL (0-0.8); NEUTROPHIL (%) 77.7 % (45-76); NEUTROPHIL COUNT 10.7 K/uL (1.8-6.4); PLATELET COUNT 326 K/uL (156-360); RBC DIS.WIDTH-CV 17.4 % (11.8-14.6); RBC DIS.WIDTH-SD 62.4 % (39-53); WHITE BLOOD COUNT 13.7 K/uL (4.1-10.2)
[2017-03-28 05:30] LABS: INTER. NORMALIZED RATIO 1.5; PROTHROMBIN TIME 15.8 (9.2-11.2)
[2017-03-28 05:47] LABS: ANION GAP 16 MEQ/L (2-14); CHLORIDE 98 MEQ/L (99-109); GFR ESTIMATE (CALCULATED) 7 mL/min/; GLUCOSE 107 mg/dL (70-99); POTASSIUM 4.8 MEQ/L (3.7-5.4); SAMPLE HEMOLYSIS CHECK 0; SAMPLE ICTERIC CHECK 0; SAMPLE LIPEMIA CHECK 0; SODIUM 136 MEQ/L (136-147); UREA NITROGEN (BUN) 57 mg/dL (9-23)
[2017-03-28 08:15] LABS: POINT-OF-CARE METER ID UU13113781; POINT-OF-CARE USER ID ENVKC36
[2017-03-28 08:41] VITALS: BP 134/63
[2017-03-28 11:38] LABS: POINT-OF-CARE USER ID ENVKC36
[2017-03-28 11:54] VITALS: BP 126/59
[2017-03-28 14:17] LABS: HBSG INDEX 0.28
[2017-03-28 17:06] VITALS: BP 143/76
[2017-03-28 19:34] VITALS: BP 170/73
[2017-03-29 01:05] VITALS: BP 120/59
[2017-03-29 04:08] VITALS: BP 131/61
[2017-03-29 06:31] LABS: EOSINOPHIL (%) 2.6 % (0-5); EOSINOPHIL COUNT 0.2 K/uL (0-0.3); HEMATOCRIT 26.5 % (38.0-50.0); IMMATURE GRANULOCYTE (%) 0.9 % (0.0-0.7); IMMATURE GRANULOCYTE COUNT 0.1 K/uL; INSTRUMENT ABS NEUTROPHIL CT 6.6 K/uL; LYMPHOCYTE COUNT 0.9 K/uL (1.0-2.8); MCH 31.7 PG (29.0-34.0); MCHC 32.1 G/DL (30.0-36.0); MCV 98.9 FL (86-99); MEAN PLAT.VOLUME 11.2 uM^3 (9.0-12.4); MONOCYTE (%) 12.8 % (3-12); MONOCYTE COUNT 1.2 K/uL (0-0.8); NEUTROPHIL (%) 72.8 % (45-76); NEUTROPHIL COUNT 6.6 K/uL (1.8-6.4); PLATELET COUNT 316 K/uL (156-360); RBC DIS.WIDTH-CV 18.1 % (11.8-14.6); RBC DIS.WIDTH-SD 64.6 % (39-53); RED BLOOD COUNT 2.68 M/uL (4.00-5.50)
[2017-03-29 06:55] LABS: ANION GAP 12 MEQ/L (2-14); CHLORIDE 101 MEQ/L (99-109); SAMPLE HEMOLYSIS CHECK 0; SAMPLE ICTERIC CHECK 0; SAMPLE LIPEMIA CHECK 0; SODIUM 139 MEQ/L (136-147)
[2017-03-29 07:15] LABS: GFR ESTIMATE (CALCULATED) 9 mL/min/; GLUCOSE 106 mg/dL (70-99); UREA NITROGEN (BUN) 48 mg/dL (9-23)
[2017-03-29 07:20] LABS: INTER. NORMALIZED RATIO 1.5; PROTHROMBIN TIME 15.3 (9.2-11.2)
[2017-03-29 07:25] VITALS: BP 138/66
[2017-03-29 12:26] VITALS: BP 132/65
[2017-03-29] MEDS ORDERED: NEBCIN40 MG/ML IV (14:29)
[2017-03-29] MEDS ORDERED: AMIODARONE HCL200 MG PO (15:00)
[2017-03-29] MEDS ORDERED: LOPRESSOR25 MG PO (15:06)
[2017-03-29 16:28] VITALS: BP 156/70
[2017-03-29 19:21] VITALS: BP 144/67
[2017-03-29 21:19] LABS: POINT-OF-CARE USER ID ENVMNS
[2017-03-30 00:40] VITALS: BP 148/70
[2017-03-30 04:07] VITALS: BP 140/67
[2017-03-30 07:31] VITALS: BP 126/59
[2017-03-30 07:42] LABS: POINT-OF-CARE METER ID UU13113781
[2017-03-30 08:43] LABS: EOSINOPHIL (%) 1.5 % (0-5); EOSINOPHIL COUNT 0.2 K/uL (0-0.3); HEMATOCRIT 26.2 % (38.0-50.0); IMMATURE GRANULOCYTE (%) 0.8 % (0.0-0.7); IMMATURE GRANULOCYTE COUNT 0.1 K/uL; INSTRUMENT ABS NEUTROPHIL CT 8.7 K/uL; LYMPHOCYTE COUNT 0.9 K/uL (1.0-2.8); MCHC 32.1 G/DL (30.0-36.0); MCV 96.7 FL (86-99); MEAN PLAT.VOLUME 10.9 uM^3 (9.0-12.4); MONOCYTE (%) 8.7 % (3-12); MONOCYTE COUNT 0.9 K/uL (0-0.8); NEUTROPHIL (%) 80.8 % (45-76); NEUTROPHIL COUNT 8.7 K/uL (1.8-6.4); PLATELET COUNT 330 K/uL (156-360); RBC DIS.WIDTH-CV 17.7 % (11.8-14.6); RBC DIS.WIDTH-SD 62.2 % (39-53); RED BLOOD COUNT 2.71 M/uL (4.00-5.50); WHITE BLOOD COUNT 10.8 K/uL (4.1-10.2)
[2017-03-30 08:52] LABS: INTER. NORMALIZED RATIO 1.4
[2017-03-30 08:59] LABS: CHLORIDE 103 mEq/L (99-109); POTASSIUM 4.9 mEq/L (3.7-5.4); SODIUM 139 mEq/L (136-147)
[2017-03-30 09:02] LABS: ANION GAP 12 MEQ/L (2-14); GLUCOSE 209 mg/dL (70-99)
[2017-03-30 09:04] LABS: GFR ESTIMATE (CALCULATED) 7 mL/min/
[2017-03-30 09:05] LABS: UREA NITROGEN (BUN) 67 mg/dL (9-23)
[2017-03-30 10:03] LABS: TOBRAMYCIN (TROUGH) 2.8 MCG/ML (0-1.0)
[2017-03-30 12:25] VITALS: BP 158/72
[2017-03-30 12:34] LABS: POINT-OF-CARE METER ID UU13113781
== END 2017-03-30 13:32 | DRG 871 ==
LOC: 4EAST 17:19
PROVIDERS: Hospitalist; Internal Medicine; Internal Medicine Nephrology
PROC: 30233N1 Transfusion of Nonautologous Red Blood Cells into Peripheral Vein, Percutaneous Approach (ICD-10-PCS; principal; 2017-03-24)
PROC: 5A1D60Z (ICD-10-PCS; 2017-03-26)
DX: A41.9 Sepsis, unspecified organism (principal); I13.2 Hypertensive heart and chronic kidney disease with heart failure and with stage 5 chronic kidney disease, or end stage renal disease; J90 Pleural effusion, not elsewhere classified; I95.9 Hypotension, unspecified; I31.3 Pericardial effusion (noninflammatory); E11.22 Type 2 diabetes mellitus with diabetic chronic kidney disease; N18.6 End stage renal disease; Z68.34 Body mass index [BMI] 34.0-34.9, adult; N30.91 Cystitis, unspecified with hematuria; I25.10 Atherosclerotic heart disease of native coronary artery without angina pectoris; D63.1 Anemia in chronic kidney disease; Z99.2 Dependence on renal dialysis; R31.0 Gross hematuria; E66.9 Obesity, unspecified; R33.9 Retention of urine, unspecified; I50.9 Heart failure, unspecified; E78.5 Hyperlipidemia, unspecified; I49.9 Cardiac arrhythmia, unspecified; G83.4 Cauda equina syndrome; I48.0 Paroxysmal atrial fibrillation; Z87.891 Personal history of nicotine dependence; Z85.528 Personal history of other malignant neoplasm of kidney; G47.33 Obstructive sleep apnea (adult) (pediatric); M48.02 Spinal stenosis, cervical region; Z90.5 Acquired absence of kidney
CPT/HCPCS: 71010; 71250; 74176; 80048; 80200; 80202; 81003; 82272; 82948; 83036; 83605; 85025; 85027; 85610; 86900; 86901; 86920; 87040; 87086; 87340; 93005; 94660; 94760; 94799; J0456; J0881; J1160; J1644; J1815; J2405; J2543; J3260; J3370; J7040; J7050; P9040

== ENCOUNTER 2017-03-30 10:52 | Inpatient (IN) | payer OTHER, BC ==
[~2017-03-30] VITALS: Ht 172.7 cm; Wt 107.7 kg
[~2017-03-30 10:52] MED LIST changes: +AMIODARONE HCL200 MG PO; +LOPRESSOR25 MG PO; +NEBCIN40 MG/ML IV
[2017-03-30 13:53] VITALS: BP 165/72
[2017-03-30 16:07] LABS: POINT-OF-CARE METER ID UU14174215
[2017-03-30 18:03] VITALS: BP 165/77
[2017-03-30 21:06] VITALS: BP 151/72
[2017-03-30 22:08] LABS: POINT-OF-CARE METER ID UU14174215; POINT-OF-CARE USER ID AHSUCEG
[2017-03-31 05:41] LABS: HEMATOCRIT 27.8 % (38.0-50.0); MCH 31.9 PG (29.0-34.0); MCV 99.6 FL (86-99); MEAN PLAT.VOLUME 11.2 uM^3 (9.0-12.4); PLATELET COUNT 318 K/uL (156-360); RBC DIS.WIDTH-CV 17.5 % (11.8-14.6); RBC DIS.WIDTH-SD 63.5 % (39-53); RED BLOOD COUNT 2.79 M/uL (4.00-5.50); WHITE BLOOD COUNT 8.9 K/uL (4.1-10.2)
[2017-03-31 05:48] LABS: INTER. NORMALIZED RATIO 1.4; PROTHROMBIN TIME 14.4 (9.2-11.2)
[2017-03-31 05:56] VITALS: BP 158/72
[2017-03-31 06:05] LABS: ALKALINE PHOSPHATASE 97 IU/L (3-129); ANION GAP 14 MEQ/L (2-14); CHLORIDE 101 MEQ/L (99-109); GFR ESTIMATE (CALCULATED) 9 mL/min/; POTASSIUM 5.4 MEQ/L (3.7-5.4); SAMPLE HEMOLYSIS CHECK 1; SAMPLE ICTERIC CHECK 0; SAMPLE LIPEMIA CHECK 0; SODIUM 140 MEQ/L (136-147); TOTAL BILIRUBIN 0.5 MG/DL (0.0-1.0); UREA NITROGEN (BUN) 49 mg/dL (9-23)
[2017-03-31 06:06] LABS: GLUCOSE 109 mg/dL (70-99)
[2017-03-31 06:23] LABS: TOBRAMYCIN (TROUGH) 1.5 MCG/ML (0-1.0)
[2017-03-31 06:33] LABS: POINT-OF-CARE METER ID UU14174215; POINT-OF-CARE USER ID ENVGAF
[2017-03-31 11:12] LABS: POINT-OF-CARE METER ID UU14174215
[2017-03-31 14:58] VITALS: BP 146/67
[2017-03-31 16:17] LABS: POINT-OF-CARE METER ID UU14174215
[2017-03-31 21:39] LABS: POINT-OF-CARE METER ID UU14174215
[2017-04-01 05:28] VITALS: BP 144/69
[2017-04-01 06:38] LABS: POINT-OF-CARE METER ID UU13113720
[2017-04-01 07:14] LABS: INTER. NORMALIZED RATIO 1.7
[2017-04-01 07:49] LABS: ANION GAP 15 MEQ/L (2-14); CHLORIDE 100 MEQ/L (99-109); GFR ESTIMATE (CALCULATED) 8 mL/min/; GLUCOSE 93 mg/dL (70-99); POTASSIUM 5.2 MEQ/L (3.7-5.4); SAMPLE HEMOLYSIS CHECK 0; SAMPLE ICTERIC CHECK 0; SAMPLE LIPEMIA CHECK 0; SODIUM 139 MEQ/L (136-147); UREA NITROGEN (BUN) 65 mg/dL (9-23)
[2017-04-01 08:02] LABS: IRON 43 MCG/DL (35-150)
[2017-04-01 11:18] LABS: POINT-OF-CARE METER ID UU14174215
[2017-04-01 15:14] VITALS: BP 120/58
[2017-04-01 16:01] LABS: POINT-OF-CARE METER ID UU14174215
[2017-04-01 21:31] LABS: POINT-OF-CARE METER ID UU14174215
[2017-04-02 04:33] VITALS: BP 133/63
[2017-04-02 09:17] LABS: EOSINOPHIL COUNT 0.2 K/uL (0-0.3); HEMATOCRIT 25.6 % (38.0-50.0); IMMATURE GRANULOCYTE (%) 0.8 % (0.0-0.7); IMMATURE GRANULOCYTE COUNT 0.1 K/uL; INSTRUMENT ABS NEUTROPHIL CT 7.7 K/uL; MCH 31.4 PG (29.0-34.0); MCHC 32.4 G/DL (30.0-36.0); MEAN PLAT.VOLUME 11.4 uM^3 (9.0-12.4); MONOCYTE (%) 9.9 % (3-12); NEUTROPHIL (%) 77.1 % (45-76); NEUTROPHIL COUNT 7.7 K/uL (1.8-6.4); PLATELET COUNT 334 K/uL (156-360); RBC DIS.WIDTH-CV 17.4 % (11.8-14.6); RBC DIS.WIDTH-SD 61.3 % (39-53); RED BLOOD COUNT 2.64 M/uL (4.00-5.50)
[2017-04-02 09:34] LABS: INTER. NORMALIZED RATIO 2.1; PROTHROMBIN TIME 22.1 (9.2-11.2)
[2017-04-02 09:51] LABS: ANION GAP 14 MEQ/L (2-14); CHLORIDE 100 MEQ/L (99-109); GFR ESTIMATE (CALCULATED) 6 mL/min/; POTASSIUM 4.7 MEQ/L (3.7-5.4); SAMPLE HEMOLYSIS CHECK 0; SAMPLE ICTERIC CHECK 0; SAMPLE LIPEMIA CHECK 0; SODIUM 138 MEQ/L (136-147); UREA NITROGEN (BUN) 73 mg/dL (9-23)
[2017-04-02 09:53] LABS: GLUCOSE 144 mg/dL (70-99)
[2017-04-02 12:43] LABS: POINT-OF-CARE METER ID UU14174215
[2017-04-02 15:45] VITALS: BP 154/70
[2017-04-02 16:38] LABS: POINT-OF-CARE METER ID UU13113720
[2017-04-02 21:37] LABS: POINT-OF-CARE METER ID UU13113720
[2017-04-03 04:00] VITALS: BP 104/54
[2017-04-03 07:25] LABS: POINT-OF-CARE METER ID UU13113720
[2017-04-03 07:54] LABS: INTER. NORMALIZED RATIO 2.1; PROTHROMBIN TIME 22.1 (9.2-11.2)
[2017-04-03 08:00] LABS: ANION GAP 13 MEQ/L (2-14); CHLORIDE 100 MEQ/L (99-109); GFR ESTIMATE (CALCULATED) 9 mL/min/; GLUCOSE 114 mg/dL (70-99); POTASSIUM 4.6 MEQ/L (3.7-5.4); SAMPLE HEMOLYSIS CHECK 0; SAMPLE ICTERIC CHECK 0; SAMPLE LIPEMIA CHECK 0; SODIUM 140 MEQ/L (136-147); UREA NITROGEN (BUN) 45 mg/dL (9-23)
[2017-04-03 09:30] VITALS: BP 108/58
[2017-04-03 11:40] LABS: POINT-OF-CARE METER ID UU13113720; POINT-OF-CARE USER ID AHSSSJB31
[2017-04-03 15:00] VITALS: BP 112/54
[2017-04-03 16:35] LABS: POINT-OF-CARE METER ID UU13113720
[2017-04-03 21:32] LABS: POINT-OF-CARE METER ID UU13113720
[2017-04-04 05:54] VITALS: BP 126/59
[2017-04-04 06:37] LABS: POINT-OF-CARE METER ID UU13113720; POINT-OF-CARE USER ID 610211320
[2017-04-04 10:20] LABS: EOSINOPHIL (%) 1.7 % (0-5); EOSINOPHIL COUNT 0.1 K/uL (0-0.3); HEMATOCRIT 27.3 % (38.0-50.0); IMMATURE GRANULOCYTE (%) 1.3 % (0.0-0.7); IMMATURE GRANULOCYTE COUNT 0.1 K/uL; INSTRUMENT ABS NEUTROPHIL CT 5.8 K/uL; MCH 30.5 PG (29.0-34.0); MCHC 30.8 G/DL (30.0-36.0); MCV 99.3 FL (86-99); MEAN PLAT.VOLUME 11.3 uM^3 (9.0-12.4); MONOCYTE (%) 13.1 % (3-12); MONOCYTE COUNT 1.1 K/uL (0-0.8); NEUTROPHIL COUNT 5.8 K/uL (1.8-6.4); NRBC (%) 0.2 /100 WBC (0-0); PLATELET COUNT 306 K/uL (156-360); RBC DIS.WIDTH-CV 17.8 % (11.8-14.6); RBC DIS.WIDTH-SD 64.2 % (39-53); RED BLOOD COUNT 2.75 M/uL (4.00-5.50); WHITE BLOOD COUNT 8.2 K/uL (4.1-10.2)
[2017-04-04 10:29] LABS: INTER. NORMALIZED RATIO 2.6; PROTHROMBIN TIME 27.3 (9.2-11.2)
[2017-04-04 10:33] LABS: CHLORIDE 101 mEq/L (99-109); POTASSIUM 4.6 mEq/L (3.7-5.4); SODIUM 138 mEq/L (136-147)
[2017-04-04 10:34] LABS: GLUCOSE 150 mg/dL (70-99)
[2017-04-04 10:36] LABS: ANION GAP 14 MEQ/L (2-14)
[2017-04-04 10:38] LABS: GFR ESTIMATE (CALCULATED) 7 mL/min/
[2017-04-04 10:39] LABS: UREA NITROGEN (BUN) 57 mg/dL (9-23)
[2017-04-04 12:17] VITALS: BP 146/66
[2017-04-04 12:28] LABS: POINT-OF-CARE METER ID UU13113720
[2017-04-04 15:19] VITALS: BP 145/65
[2017-04-04 16:07] LABS: POINT-OF-CARE METER ID UU13113720
[2017-04-04 21:35] LABS: POINT-OF-CARE METER ID UU13113720
[2017-04-05 05:00] VITALS: BP 136/62
[2017-04-05 05:35] LABS: INTER. NORMALIZED RATIO 3.1; PROTHROMBIN TIME 32.9 (9.2-11.2)
[2017-04-05 06:57] LABS: POINT-OF-CARE METER ID UU13113720
[2017-04-05 11:48] LABS: POINT-OF-CARE METER ID UU13113720
[2017-04-05 15:20] VITALS: BP 145/66
[2017-04-05 16:12] LABS: POINT-OF-CARE METER ID UU13113720; POINT-OF-CARE USER ID ENVGAF
[2017-04-05 21:05] LABS: POINT-OF-CARE METER ID UU13113720
[2017-04-06 05:24] VITALS: BP 168/77
[2017-04-06 06:17] LABS: POINT-OF-CARE METER ID UU14174215; POINT-OF-CARE USER ID ENVGAF
[2017-04-06 08:22] LABS: EOSINOPHIL (%) 1.7 % (0-5); EOSINOPHIL COUNT 0.2 K/uL (0-0.3); IMMATURE GRANULOCYTE (%) 0.7 % (0.0-0.7); IMMATURE GRANULOCYTE COUNT 0.1 K/uL; INSTRUMENT ABS NEUTROPHIL CT 7.5 K/uL; MCH 31.9 PG (29.0-34.0); MCHC 31.9 G/DL (30.0-36.0); MEAN PLAT.VOLUME 10.4 uM^3 (9.0-12.4); MONOCYTE COUNT 1.2 K/uL (0-0.8); NEUTROPHIL (%) 74.9 % (45-76); NEUTROPHIL COUNT 7.5 K/uL (1.8-6.4); NRBC (%) 0.2 /100 WBC (0-0); PLATELET COUNT 289 K/uL (156-360); RBC DIS.WIDTH-CV 18.4 % (11.8-14.6); RBC DIS.WIDTH-SD 65.8 % (39-53)
[2017-04-06 08:48] LABS: ANION GAP 12 MEQ/L (2-14); CHLORIDE 100 MEQ/L (99-109); GFR ESTIMATE (CALCULATED) 8 mL/min/; GLUCOSE 177 mg/dL (70-99); POTASSIUM 4.4 MEQ/L (3.7-5.4); SAMPLE HEMOLYSIS CHECK 0; SAMPLE ICTERIC CHECK 0; SAMPLE LIPEMIA CHECK 0; SODIUM 137 MEQ/L (136-147); UREA NITROGEN (BUN) 45 mg/dL (9-23)
[2017-04-06 13:11] LABS: INTER. NORMALIZED RATIO 3.1; PROTHROMBIN TIME 32.7 (9.2-11.2)
[2017-04-06 13:43] LABS: POINT-OF-CARE METER ID UU14174215
[2017-04-06 15:27] VITALS: BP 147/66
[2017-04-06 16:36] VITALS: BP 166/74
[2017-04-06 16:41] LABS: POINT-OF-CARE METER ID UU14174215
[2017-04-06 21:28] LABS: POINT-OF-CARE METER ID UU14174215
[2017-04-07 04:29] VITALS: BP 135/61
[2017-04-07 07:13] LABS: INTER. NORMALIZED RATIO 3.2; PROTHROMBIN TIME 34.3 (9.2-11.2)
[2017-04-07 07:42] LABS: POINT-OF-CARE METER ID UU13113720; POINT-OF-CARE USER ID AHSSSJB31
[2017-04-07 11:47] LABS: POINT-OF-CARE METER ID UU13113720; POINT-OF-CARE USER ID AHSSSJB31
[2017-04-07 15:00] VITALS: BP 180/77
[2017-04-07 16:37] LABS: POINT-OF-CARE METER ID UU14174215
[2017-04-07 16:48] VITALS: BP 180/77
[2017-04-07 21:15] LABS: POINT-OF-CARE METER ID UU13113720
[2017-04-08 05:07] VITALS: BP 142/63
[2017-04-08 06:15] LABS: INTER. NORMALIZED RATIO 3.1; PROTHROMBIN TIME 32.2 (9.2-11.2)
[2017-04-08 07:27] LABS: POINT-OF-CARE METER ID UU14174215; POINT-OF-CARE USER ID AHSSSJB31
[2017-04-08 12:42] LABS: POINT-OF-CARE METER ID UU14174215; POINT-OF-CARE USER ID AHSSSJB31
[2017-04-08 15:41] VITALS: BP 150/56
[2017-04-08 16:21] LABS: POINT-OF-CARE METER ID UU14174215
[2017-04-08 21:01] LABS: POINT-OF-CARE METER ID UU13113720
[2017-04-09 05:38] VITALS: BP 160/72
[2017-04-09 06:13] LABS: POINT-OF-CARE METER ID UU13113720
[2017-04-09 07:53] LABS: HEMATOCRIT 26.4 % (38.0-50.0); MCH 31.7 PG (29.0-34.0); MCHC 31.8 G/DL (30.0-36.0); MCV 99.6 FL (86-99); MEAN PLAT.VOLUME 10.3 uM^3 (9.0-12.4); PLATELET COUNT 233 K/uL (156-360); RBC DIS.WIDTH-CV 18.2 % (11.8-14.6); RBC DIS.WIDTH-SD 66.8 % (39-53); RED BLOOD COUNT 2.65 M/uL (4.00-5.50); WHITE BLOOD COUNT 8.1 K/uL (4.1-10.2)
[2017-04-09 08:07] LABS: INTER. NORMALIZED RATIO 3.5; PROTHROMBIN TIME 36.9 (9.2-11.2)
[2017-04-09 08:10] LABS: ANION GAP 11 MEQ/L (2-14); CHLORIDE 102 MEQ/L (99-109); GFR ESTIMATE (CALCULATED) 7 mL/min/; GLUCOSE 165 mg/dL (70-99); POTASSIUM 4.3 MEQ/L (3.7-5.4); SAMPLE HEMOLYSIS CHECK 0; SAMPLE ICTERIC CHECK 0; SAMPLE LIPEMIA CHECK 0; SODIUM 139 MEQ/L (136-147); UREA NITROGEN (BUN) 38 mg/dL (9-23)
[2017-04-09 12:00] VITALS: BP 188/79
[2017-04-09 12:00] LABS: POINT-OF-CARE METER ID UU14174215; POINT-OF-CARE USER ID ENVGAF
[2017-04-09 13:22] VITALS: BP 174/76
[2017-04-09 15:55] VITALS: BP 154/70
[2017-04-09 16:14] LABS: POINT-OF-CARE METER ID UU14174215
[2017-04-09 21:01] LABS: POINT-OF-CARE METER ID UU13113720
[2017-04-10 05:07] VITALS: BP 149/67
[2017-04-10 06:09] LABS: PROTHROMBIN TIME 31.3 (9.2-11.2)
[2017-04-10 06:33] LABS: POINT-OF-CARE METER ID UU13113720; POINT-OF-CARE USER ID ENVGAF
[2017-04-10 11:28] LABS: POINT-OF-CARE METER ID UU13113720; POINT-OF-CARE USER ID ENVGAF
[2017-04-10 15:28] VITALS: BP 151/67
[2017-04-10 16:26] LABS: POINT-OF-CARE METER ID UU14174215
[2017-04-10 21:21] LABS: POINT-OF-CARE METER ID UU13113720
[2017-04-11 05:29] VITALS: BP 159/74
[2017-04-11 06:42] LABS: POINT-OF-CARE METER ID UU13113720; POINT-OF-CARE USER ID ENVGAF
[2017-04-11 08:19] LABS: EOSINOPHIL (%) 3.9 % (0-5); EOSINOPHIL COUNT 0.3 K/uL (0-0.3); HEMATOCRIT 27.5 % (38.0-50.0); IMMATURE GRANULOCYTE (%) 0.9 % (0.0-0.7); IMMATURE GRANULOCYTE COUNT 0.1 K/uL; INSTRUMENT ABS NEUTROPHIL CT 4.6 K/uL; LYMPHOCYTE COUNT 0.9 K/uL (1.0-2.8); MCH 30.8 PG (29.0-34.0); MCHC 30.9 G/DL (30.0-36.0); MCV 99.6 FL (86-99); MEAN PLAT.VOLUME 10.2 uM^3 (9.0-12.4); MONOCYTE (%) 12.5 % (3-12); MONOCYTE COUNT 0.8 K/uL (0-0.8); NEUTROPHIL (%) 68.1 % (45-76); NEUTROPHIL COUNT 4.6 K/uL (1.8-6.4); PLATELET COUNT 211 K/uL (156-360); RBC DIS.WIDTH-CV 18.2 % (11.8-14.6); RBC DIS.WIDTH-SD 66.5 % (39-53); RED BLOOD COUNT 2.76 M/uL (4.00-5.50); WHITE BLOOD COUNT 6.7 K/uL (4.1-10.2)
[2017-04-11 08:24] LABS: INTER. NORMALIZED RATIO 2.7; PROTHROMBIN TIME 28.7 (9.2-11.2)
[2017-04-11 08:35] LABS: ANION GAP 11 MEQ/L (2-14); CHLORIDE 102 MEQ/L (99-109); POTASSIUM 3.9 MEQ/L (3.7-5.4); SAMPLE HEMOLYSIS CHECK 0; SAMPLE ICTERIC CHECK 0; SAMPLE LIPEMIA CHECK 0; SODIUM 139 MEQ/L (136-147)
[2017-04-11 08:40] LABS: GFR ESTIMATE (CALCULATED) 9 mL/min/; GLUCOSE 186 mg/dL (70-99); UREA NITROGEN (BUN) 29 mg/dL (9-23)
[2017-04-11 12:06] VITALS: BP 165/72
[2017-04-11 12:16] LABS: POINT-OF-CARE METER ID UU13113720
[2017-04-11 15:07] VITALS: BP 182/79
[2017-04-11 16:27] VITALS: BP 160/60
[2017-04-11 16:33] LABS: POINT-OF-CARE METER ID UU13113720
[2017-04-11 18:10] VITALS: BP 154/70
[2017-04-11 21:22] LABS: POINT-OF-CARE METER ID UU13113720
[2017-04-12 05:50] VITALS: BP 163/70
[2017-04-12 06:33] LABS: POINT-OF-CARE METER ID UU13113720; POINT-OF-CARE USER ID ENVGAF
[2017-04-12 07:32] LABS: INTER. NORMALIZED RATIO 2.4; PROTHROMBIN TIME 25.5 (9.2-11.2)
[2017-04-12 11:24] LABS: POINT-OF-CARE METER ID UU13113720; POINT-OF-CARE USER ID ENVGAF
[2017-04-12 15:50] VITALS: BP 189/77
[2017-04-12 16:24] LABS: POINT-OF-CARE METER ID UU14174215
[2017-04-12 21:40] LABS: POINT-OF-CARE METER ID UU13113720
[2017-04-13 05:44] VITALS: BP 156/68
[2017-04-13 06:31] LABS: POINT-OF-CARE METER ID UU14174215
[2017-04-13 09:21] LABS: ANION GAP 10 MEQ/L (2-14); CHLORIDE 100 MEQ/L (99-109); POTASSIUM 3.9 MEQ/L (3.7-5.4); SAMPLE HEMOLYSIS CHECK 0; SAMPLE ICTERIC CHECK 0; SAMPLE LIPEMIA CHECK 0; SODIUM 137 MEQ/L (136-147)
[2017-04-13 09:22] LABS: EOSINOPHIL (%) 3.1 % (0-5); EOSINOPHIL COUNT 0.3 K/uL (0-0.3); HEMATOCRIT 27.7 % (38.0-50.0); IMMATURE GRANULOCYTE (%) 0.3 % (0.0-0.7); INSTRUMENT ABS NEUTROPHIL CT 6.3 K/uL; LYMPHOCYTE COUNT 1.1 K/uL (1.0-2.8); MCH 30.1 PG (29.0-34.0); MCHC 30.7 G/DL (30.0-36.0); MCV 98.2 FL (86-99); MEAN PLAT.VOLUME 9.9 uM^3 (9.0-12.4); MONOCYTE (%) 11.7 % (3-12); NEUTROPHIL (%) 71.9 % (45-76); NEUTROPHIL COUNT 6.3 K/uL (1.8-6.4); PLATELET COUNT 212 K/uL (156-360); RBC DIS.WIDTH-CV 18.4 % (11.8-14.6); RBC DIS.WIDTH-SD 65.3 % (39-53); RED BLOOD COUNT 2.82 M/uL (4.00-5.50); WHITE BLOOD COUNT 8.8 K/uL (4.1-10.2)
[2017-04-13 09:25] LABS: INTER. NORMALIZED RATIO 2.5; PROTHROMBIN TIME 26.4 (9.2-11.2)
[2017-04-13 09:27] LABS: GFR ESTIMATE (CALCULATED) 9 mL/min/; GLUCOSE 184 mg/dL (70-99); UREA NITROGEN (BUN) 29 mg/dL (9-23)
[2017-04-13 13:25] LABS: POINT-OF-CARE METER ID UU14174215
[2017-04-13 13:29] VITALS: BP 180/75
[2017-04-13 13:40] VITALS: BP 186/60
[2017-04-13 15:19] VITALS: BP 162/60
[2017-04-13 16:00] VITALS: BP 168/58
[2017-04-13 16:40] LABS: POINT-OF-CARE METER ID UU14174215
[2017-04-13 19:45] VITALS: BP 142/60
[2017-04-13 21:01] LABS: POINT-OF-CARE METER ID UU13113720
[2017-04-14 05:12] VITALS: BP 144/66
[2017-04-14 06:31] LABS: POINT-OF-CARE METER ID UU13113720; POINT-OF-CARE USER ID ENVGAF
[2017-04-14 06:46] LABS: INTER. NORMALIZED RATIO 2.6; PROTHROMBIN TIME 27.3 (9.2-11.2)
[2017-04-14 11:14] LABS: POINT-OF-CARE METER ID UU13113720
[2017-04-14 15:31] VITALS: BP 160/72
[2017-04-14 16:11] LABS: POINT-OF-CARE METER ID UU13113720; POINT-OF-CARE USER ID ENVGAF
[2017-04-14 21:15] LABS: POINT-OF-CARE METER ID UU13113720
[2017-04-15 05:11] VITALS: BP 142/58
[2017-04-15 06:35] LABS: PROTHROMBIN TIME 31.9 (9.2-11.2)
[2017-04-15 06:40] LABS: POINT-OF-CARE METER ID UU13113720; POINT-OF-CARE USER ID ENVGAF
[2017-04-15 11:26] LABS: POINT-OF-CARE METER ID UU13113720
[2017-04-15 15:10] VITALS: BP 161/73
[2017-04-15 16:09] LABS: POINT-OF-CARE METER ID UU13113720
[2017-04-15 21:14] LABS: POINT-OF-CARE METER ID UU14174215
[2017-04-16 04:35] VITALS: BP 133/60
[2017-04-16 06:04] LABS: POINT-OF-CARE METER ID UU13113720
[2017-04-16 08:21] LABS: HEMATOCRIT 27.5 % (38.0-50.0); MCHC 30.9 G/DL (30.0-36.0); MCV 97.2 FL (86-99); PLATELET COUNT 198 K/uL (156-360); RBC DIS.WIDTH-CV 18.2 % (11.8-14.6); RBC DIS.WIDTH-SD 65.7 % (39-53); RED BLOOD COUNT 2.83 M/uL (4.00-5.50)
[2017-04-16 08:32] LABS: ANION GAP 12 MEQ/L (2-14); CHLORIDE 101 MEQ/L (99-109); POTASSIUM 3.7 MEQ/L (3.7-5.4); SAMPLE HEMOLYSIS CHECK 0; SAMPLE ICTERIC CHECK 0; SAMPLE LIPEMIA CHECK 0; SODIUM 137 MEQ/L (136-147)
[2017-04-16 08:40] LABS: GLUCOSE 193 mg/dL (70-99); UREA NITROGEN (BUN) 32 mg/dL (9-23)
[2017-04-16 08:42] LABS: GFR ESTIMATE (CALCULATED) 7 mL/min/
[2017-04-16 08:44] LABS: PROTHROMBIN TIME 31.7 (9.2-11.2)
[2017-04-16 12:35] LABS: POINT-OF-CARE METER ID UU13113720
[2017-04-16 15:15] VITALS: BP 159/70
[2017-04-16 16:18] LABS: POINT-OF-CARE METER ID UU13113720
[2017-04-16 21:01] LABS: POINT-OF-CARE METER ID UU13113720; POINT-OF-CARE USER ID ENVGAF
[2017-04-17 05:06] VITALS: BP 138/64
[2017-04-17 07:11] LABS: PROTHROMBIN TIME 21.1 (9.2-11.2)
[2017-04-17 07:35] LABS: POINT-OF-CARE METER ID UU13113720; POINT-OF-CARE USER ID AHSSSJB31
[2017-04-17 11:42] LABS: POINT-OF-CARE METER ID UU13113720; POINT-OF-CARE USER ID AHSSSJB31
[2017-04-17 15:24] VITALS: BP 175/75
[2017-04-17 17:13] LABS: POINT-OF-CARE METER ID UU13113720
[2017-04-17 21:24] LABS: POINT-OF-CARE METER ID UU14174215
[2017-04-18 06:00] LABS: POINT-OF-CARE METER ID UU14174215
[2017-04-18 06:08] VITALS: BP 138/64
[2017-04-18 07:57] LABS: HEMATOCRIT 28.2 % (38.0-50.0); MCH 30.9 PG (29.0-34.0); MCHC 31.9 G/DL (30.0-36.0); MCV 96.9 FL (86-99); MEAN PLAT.VOLUME 10.1 uM^3 (9.0-12.4); PLATELET COUNT 203 K/uL (156-360); RBC DIS.WIDTH-CV 18.1 % (11.8-14.6); RBC DIS.WIDTH-SD 63.8 % (39-53); RED BLOOD COUNT 2.91 M/uL (4.00-5.50); WHITE BLOOD COUNT 6.9 K/uL (4.1-10.2)
[2017-04-18 08:12] LABS: INTER. NORMALIZED RATIO 2.2; PROTHROMBIN TIME 23.1 (9.2-11.2)
[2017-04-18 08:13] LABS: ANION GAP 12 MEQ/L (2-14); CHLORIDE 101 MEQ/L (99-109); GFR ESTIMATE (CALCULATED) 8 mL/min/; GLUCOSE 199 mg/dL (70-99); POTASSIUM 3.5 MEQ/L (3.7-5.4); SAMPLE HEMOLYSIS CHECK 0; SAMPLE ICTERIC CHECK 0; SAMPLE LIPEMIA CHECK 0; SODIUM 138 MEQ/L (136-147); UREA NITROGEN (BUN) 24 mg/dL (9-23)
[2017-04-18 12:25] LABS: POINT-OF-CARE METER ID UU13113720
[2017-04-18 12:30] VITALS: BP 185/80
[2017-04-18 13:40] VITALS: BP 164/62
[2017-04-18 15:10] VITALS: BP 169/73
[2017-04-18 16:15] LABS: POINT-OF-CARE METER ID UU13113720
[2017-04-18 21:17] LABS: POINT-OF-CARE METER ID UU14174215
[2017-04-19 04:30] VITALS: BP 126/60
[2017-04-19 06:23] LABS: INTER. NORMALIZED RATIO 2.5
[2017-04-19 06:44] LABS: POINT-OF-CARE METER ID UU13113720; POINT-OF-CARE USER ID ENVGAF
[2017-04-19 11:11] LABS: POINT-OF-CARE METER ID UU13113720
[2017-04-19 14:56] VITALS: BP 157/72
[2017-04-19 16:22] LABS: POINT-OF-CARE METER ID UU13113720
[2017-04-19 21:12] LABS: POINT-OF-CARE METER ID UU13113720
[2017-04-20 05:08] VITALS: BP 147/69
[2017-04-20 06:26] LABS: POINT-OF-CARE METER ID UU14174215
[2017-04-20 06:29] LABS: POINT-OF-CARE METER ID UU13113720; POINT-OF-CARE USER ID ENVGAF
[2017-04-20 09:59] LABS: EOSINOPHIL (%) 4.8 % (0-5); EOSINOPHIL COUNT 0.4 K/uL (0-0.3); HEMATOCRIT 29.3 % (38.0-50.0); IMMATURE GRANULOCYTE (%) 0.5 % (0.0-0.7); INSTRUMENT ABS NEUTROPHIL CT 4.9 K/uL; LYMPHOCYTE COUNT 1.4 K/uL (1.0-2.8); MCH 29.7 PG (29.0-34.0); MEAN PLAT.VOLUME 10.3 uM^3 (9.0-12.4); MONOCYTE (%) 10.7 % (3-12); MONOCYTE COUNT 0.8 K/uL (0-0.8); NEUTROPHIL (%) 64.9 % (45-76); NEUTROPHIL COUNT 4.9 K/uL (1.8-6.4); PLATELET COUNT 231 K/uL (156-360); RBC DIS.WIDTH-CV 18.6 % (11.8-14.6); RBC DIS.WIDTH-SD 66.4 % (39-53); RED BLOOD COUNT 2.96 M/uL (4.00-5.50); WHITE BLOOD COUNT 7.6 K/uL (4.1-10.2)
[2017-04-20 10:17] LABS: ANION GAP 10 MEQ/L (2-14); CHLORIDE 105 MEQ/L (99-109); POTASSIUM 4.1 MEQ/L (3.7-5.4); SAMPLE HEMOLYSIS CHECK 0; SAMPLE ICTERIC CHECK 0; SAMPLE LIPEMIA CHECK 0; SODIUM 139 MEQ/L (136-147)
[2017-04-20 10:22] LABS: GFR ESTIMATE (CALCULATED) 9 mL/min/; GLUCOSE 157 mg/dL (70-99); UREA NITROGEN (BUN) 22 mg/dL (9-23)
[2017-04-20] MEDS ORDERED: FLOMAX0.4 MG PO (13:41)
[2017-04-20] MEDS ORDERED: COUMADIN2 MG PO (13:41)
[2017-04-20] MEDS ORDERED: CARDIZEM CD,CA180 MG PO (13:41)
[2017-04-20] MEDS ORDERED: SENSIPAR30 MG PO (13:41)
[2017-04-20] MEDS ORDERED: FLONASE16 G1 BOTH NARES (13:41)
[2017-04-20] MEDS ORDERED: LOPRESSOR25 MG PO (13:41)
[2017-04-20] MEDS ORDERED: RENVELA800 MG PO (13:41)
[2017-04-20] MEDS ORDERED: COLACE100 MG PO (13:41)
[2017-04-20] MEDS ORDERED: NEPHRO-VITE,1 TABLET PO (13:41)
[2017-04-20] MEDS ORDERED: NOVOLOG 10100 UNITS/ SC (13:41)
[2017-04-20] MEDS ORDERED: NIZORAL 2% CREA15 GM TP (13:41)
[2017-04-20] MEDS ORDERED: TYLENOL REGULA325 MG PO (13:41)
[2017-04-20] MEDS ORDERED: GABAPENTIN100 MG PO (13:41)
[2017-04-20] MEDS ORDERED: XALATAN2.5 ML BOTH EYES (13:41)
[2017-04-20] MEDS ORDERED: PROTONIX40 MG PO (13:41)
[2017-04-20] MEDS ORDERED: FLUOXETINE HCL20 MG PO (13:41)
[2017-04-20] MEDS ORDERED: ARANESP150 MCG/0. IV (13:41)
[2017-04-20] MEDS ORDERED: PRIMIDONE50 MG PO (13:41)
[2017-04-20] MEDS ORDERED: VITAMIN D2000 UNIT PO (13:41)
[2017-04-20] MEDS ORDERED: PRAVASTATIN SOD40 MG PO (13:41)
[2017-04-20] MEDS ORDERED: ASPIR-LOW81 MG PO (13:41)
[2017-04-20] MEDS ORDERED: SODIUM CHLORIDE1 G1 PO (13:41)
[2017-04-20] MEDS ORDERED: ALLOPURINOL100 MG PO (13:41)
[2017-04-20] MEDS ORDERED: SPIRIVA RESPIMAT4 GM IH (13:41)
[2017-04-20] MEDS ORDERED: FUROSEMIDE40 MG PO (13:41)
[2017-04-20 14:08] VITALS: BP 172/68
[2017-04-20 14:09] LABS: POINT-OF-CARE METER ID UU13113720
[2017-04-20 14:40] LABS: INTER. NORMALIZED RATIO 2.6; PROTHROMBIN TIME 26.8 (9.2-11.2)
[2017-04-20 15:33] VITALS: BP 174/74
[2017-04-20 16:25] LABS: POINT-OF-CARE METER ID UU13113720
[2017-04-20] MEDS ORDERED: ZOFRAN4 MG PO (18:20)
[2017-04-20 21:08] LABS: POINT-OF-CARE METER ID UU13113720
[2017-04-21 04:57] VITALS: BP 126/74
[2017-04-21 07:24] LABS: POINT-OF-CARE METER ID UU14174215; POINT-OF-CARE USER ID AHSSSJB31
[2017-04-21 11:46] LABS: POINT-OF-CARE METER ID UU14174215; POINT-OF-CARE USER ID AHSSSJB31
[2017-04-22] MEDS ORDERED: LO-DOSE ASPIRIN81 M2 PO (22:16)
[2017-04-22] MEDS ORDERED: COUMADIN2 MG PO (22:16)
[2017-04-22] MEDS ORDERED: RENVELA800 MG PO ×2 (22:18)
[2017-04-22] MEDS ORDERED: FLONASE16 G1 BOTH NARES (22:19)
[2017-04-22] MEDS ORDERED: PROTONIX40 MG PO (22:20)
[2017-04-22] MEDS ORDERED: SENSIPAR30 MG PO (22:21)
== END 2017-04-21 13:37 | DRG 91 ==
LOC: 3WEST 10:52
PROVIDERS: Internal Medicine Nephrology; Physical Medicine & Rehabilitation Pain Medicine; Psychiatry & Neurology Neurology
PROC: F07M0ZZ Range of Motion and Joint Mobility Treatment of Musculoskeletal System - Whole Body (ICD-10-PCS; principal; 2017-03-30)
PROC: 5A1D60Z (ICD-10-PCS; 2017-04-02)
DX: R26.9 Unspecified abnormalities of gait and mobility (principal); G95.9 Disease of spinal cord, unspecified; G72.81 Critical illness myopathy; G83.4 Cauda equina syndrome; J18.9 Pneumonia, unspecified organism; I47.1 Supraventricular tachycardia; I12.0 Hypertensive chronic kidney disease with stage 5 chronic kidney disease or end stage renal disease; G62.9 Polyneuropathy, unspecified; E11.22 Type 2 diabetes mellitus with diabetic chronic kidney disease; N18.6 End stage renal disease; J44.1 Chronic obstructive pulmonary disease with (acute) exacerbation; D62 Acute posthemorrhagic anemia; I48.92 Unspecified atrial flutter; Z90.5 Acquired absence of kidney; E83.39 Other disorders of phosphorus metabolism; I25.10 Atherosclerotic heart disease of native coronary artery without angina pectoris; N39.0 Urinary tract infection, site not specified; M48.06 Spinal stenosis, lumbar region; D49.7 Neoplasm of unspecified behavior of endocrine glands and other parts of nervous system; I48.0 Paroxysmal atrial fibrillation; D63.1 Anemia in chronic kidney disease; Z87.891 Personal history of nicotine dependence; Z85.528 Personal history of other malignant neoplasm of kidney; R41.82 Altered mental status, unspecified; J30.2 Other seasonal allergic rhinitis; G47.33 Obstructive sleep apnea (adult) (pediatric); Z87.01 Personal history of pneumonia (recurrent); Z99.2 Dependence on renal dialysis; Z68.39 Body mass index [BMI] 39.0-39.9, adult; Z95.5 Presence of coronary angioplasty implant and graft
CPT/HCPCS: 71010; 71020; 80048; 80053; 80069; 80200; 82533 91; 82948; 83540; 84466; 85025; 85027; 85610; 87040; 94640; 94640 76; 94660; 94799; 97110 GO; 97530 GP; A6260; J0692; J0881; J1644; J3260; J7050; Q0169

== ENCOUNTER 2017-04-22 18:44 | Inpatient (IN) | payer OTHER, BC ==
[~2017-04-22] VITALS: Ht 180.3 cm; Wt 111.0 kg
[~2017-04-22 18:44] MED LIST changes: +ARANESP150 MCG/0. IV; +ASPIR-LOW81 MG PO; +COUMADIN2 MG PO; +SPIRIVA RESPIMAT4 GM IH; +ZOFRAN4 MG PO
[2017-04-22 20:21] LABS: EOSINOPHIL (%) 0.6 % (0-5); EOSINOPHIL COUNT 0.1 K/uL (0-0.3); HEMATOCRIT 30.9 % (38.0-50.0); IMMATURE GRANULOCYTE (%) 0.4 % (0.0-0.7); INSTRUMENT ABS NEUTROPHIL CT 7.8 K/uL; LYMPHOCYTE COUNT 1.4 K/uL (1.0-2.8); MCH 29.9 PG (29.0-34.0); MCHC 31.1 G/DL (30.0-36.0); MCV 96.3 FL (86-99); MEAN PLAT.VOLUME 10.1 uM^3 (9.0-12.4); MONOCYTE COUNT 1.3 K/uL (0-0.8); NEUTROPHIL (%) 73.3 % (45-76); NEUTROPHIL COUNT 7.8 K/uL (1.8-6.4); PLATELET COUNT 233 K/uL (156-360); RBC DIS.WIDTH-CV 18.3 % (11.8-14.6); RBC DIS.WIDTH-SD 65.1 % (39-53); RED BLOOD COUNT 3.21 M/uL (4.00-5.50); WHITE BLOOD COUNT 10.6 K/uL (4.1-10.2)
[2017-04-22 20:31] LABS: CHLORIDE 99 mEq/L (99-109); POTASSIUM 4.7 mEq/L (3.7-5.4); SODIUM 134 mEq/L (136-147)
[2017-04-22 20:32] LABS: GLUCOSE 120 mg/dL (70-99)
[2017-04-22 20:34] LABS: ANION GAP 10 MEQ/L (2-14)
[2017-04-22 20:36] LABS: GFR ESTIMATE (CALCULATED) 8 mL/min/
[2017-04-22 20:37] LABS: UREA NITROGEN (BUN) 30 mg/dL (9-23)
[2017-04-22 21:07] LABS: ADD MIUA? YES; BILIRUBIN NEGATIVE; BLOOD NEGATIVE; COLOR YELLOW ((YELLOW)); GLUCOSE (STRIP) 50; KETONES NEGATIVE; LEUKOCYTES NEGATIVE; NITRITE NEGATIVE; PROTEIN (STRIP) 100; UROBILINOGEN 0.2 MG/DL (0.2-1.0)
[2017-04-22 21:15] LABS: BACTERIA NONE SEEN /HPF; EPITHELIAL CELLS RARE /HPF; HYALINE CASTS 0-5 /LPF; MUCUS TRACE /LPF; RED BLOOD CELLS 0-5 /HPF (0-5); UCUL ADDED? NO
[2017-04-22] MEDS ORDERED: LO-DOSE ASPIRIN81 M2 PO (22:16)
[2017-04-22] MEDS ORDERED: COUMADIN2 MG PO (22:16)
[2017-04-22] MEDS ORDERED: RENVELA800 MG PO ×2 (22:18)
[2017-04-22] MEDS ORDERED: FLONASE16 G1 BOTH NARES (22:19)
[2017-04-22] MEDS ORDERED: PROTONIX40 MG PO (22:20)
[2017-04-22] MEDS ORDERED: SENSIPAR30 MG PO (22:21)
[2017-04-22 23:49] LABS: INTER. NORMALIZED RATIO 2.9; PROTHROMBIN TIME 30.8 (9.2-11.2)
[2017-04-23] VITALS (7 sets, daily range): BP systolic 54–184; BP diastolic 60–88
[2017-04-23 07:33] LABS: POINT-OF-CARE METER ID UU14188577
[2017-04-23 08:36] LABS: HEMATOCRIT 28.8 % (38.0-50.0); MCH 30.3 PG (29.0-34.0); MCHC 30.9 G/DL (30.0-36.0); MEAN PLAT.VOLUME 10.1 uM^3 (9.0-12.4); PLATELET COUNT 211 K/uL (156-360); RBC DIS.WIDTH-CV 18.2 % (11.8-14.6); RBC DIS.WIDTH-SD 65.4 % (39-53); RED BLOOD COUNT 2.94 M/uL (4.00-5.50); WHITE BLOOD COUNT 8.1 K/uL (4.1-10.2)
[2017-04-23 09:04] LABS: ANION GAP 11 MEQ/L (2-14); CHLORIDE 98 MEQ/L (99-109); GFR ESTIMATE (CALCULATED) 7 mL/min/; GLUCOSE 170 mg/dL (70-99); POTASSIUM 4.3 MEQ/L (3.7-5.4); SAMPLE HEMOLYSIS CHECK 0; SAMPLE ICTERIC CHECK 0; SAMPLE LIPEMIA CHECK 0; SODIUM 135 MEQ/L (136-147); UREA NITROGEN (BUN) 35 mg/dL (9-23)
[2017-04-23 11:33] LABS: POINT-OF-CARE METER ID UU14149397
[2017-04-23 21:43] LABS: POINT-OF-CARE METER ID UU14149397
[2017-04-24] VITALS: BP 146/63
[2017-04-24 04:16] VITALS: BP 127/64
[2017-04-24 07:03] LABS: POINT-OF-CARE METER ID UU14149397
[2017-04-24 07:24] VITALS: BP 137/63
[2017-04-24 11:08] VITALS: BP 150/70
[2017-04-24 11:24] LABS: INTER. NORMALIZED RATIO 3.6; PROTHROMBIN TIME 38.4 (9.2-11.2)
[2017-04-24 12:11] LABS: POINT-OF-CARE METER ID UU14149397
[2017-04-24 14:57] VITALS: BP 127/64
[2017-04-24 21:47] LABS: POINT-OF-CARE METER ID UU14149397
[2017-04-24 23:16] VITALS: BP 140/78
[2017-04-25 06:32] LABS: BASOPHIL COUNT 0.1 K/uL (0-0.1); EOSINOPHIL (%) 1.9 % (0-5); EOSINOPHIL COUNT 0.2 K/uL (0-0.3); HEMATOCRIT 32.1 % (38.0-50.0); IMMATURE GRANULOCYTE (%) 0.6 % (0.0-0.7); IMMATURE GRANULOCYTE COUNT 0.1 K/uL; INSTRUMENT ABS NEUTROPHIL CT 5.5 K/uL; LYMPHOCYTE COUNT 1.5 K/uL (1.0-2.8); MCH 30.3 PG (29.0-34.0); MCHC 31.5 G/DL (30.0-36.0); MCV 96.4 FL (86-99); MEAN PLAT.VOLUME 10.8 uM^3 (9.0-12.4); MONOCYTE (%) 12.6 % (3-12); MONOCYTE COUNT 1.1 K/uL (0-0.8); NEUTROPHIL (%) 66.2 % (45-76); NEUTROPHIL COUNT 5.5 K/uL (1.8-6.4); PLATELET COUNT 238 K/uL (156-360); RBC DIS.WIDTH-SD 64.1 % (39-53); RED BLOOD COUNT 3.33 M/uL (4.00-5.50); WHITE BLOOD COUNT 8.3 K/uL (4.1-10.2)
[2017-04-25 06:52] LABS: INTER. NORMALIZED RATIO 3.7; PROTHROMBIN TIME 38.7 (9.2-11.2)
[2017-04-25 06:55] LABS: ANION GAP 14 MEQ/L (2-14); CHLORIDE 100 MEQ/L (99-109); GFR ESTIMATE (CALCULATED) 8 mL/min/; POTASSIUM 4.5 MEQ/L (3.7-5.4); SAMPLE HEMOLYSIS CHECK 0; SAMPLE ICTERIC CHECK 0; SAMPLE LIPEMIA CHECK 0; SODIUM 139 MEQ/L (136-147); UREA NITROGEN (BUN) 29 mg/dL (9-23)
[2017-04-25 07:13] LABS: GLUCOSE 108 mg/dL (70-99)
[2017-04-25 12:04] LABS: HBSG INDEX 0.57
[2017-04-25 17:48] VITALS: BP 168/62
[2017-04-25 20:30] VITALS: BP 150/62
[2017-04-26 00:37] VITALS: BP 156/76
[2017-04-26 04:30] VITALS: BP 152/70
[2017-04-26 06:46] LABS: ANION GAP 9 MEQ/L (2-14); CHLORIDE 100 MEQ/L (99-109); GFR ESTIMATE (CALCULATED) 12 mL/min/; GLUCOSE 103 mg/dL (70-99); POTASSIUM 4.3 MEQ/L (3.7-5.4); SAMPLE HEMOLYSIS CHECK 0; SAMPLE ICTERIC CHECK 0; SAMPLE LIPEMIA CHECK 0; SODIUM 138 MEQ/L (136-147); UREA NITROGEN (BUN) 20 mg/dL (9-23)
[2017-04-26 07:16] VITALS: BP 152/68
[2017-04-26 07:16] LABS: INTER. NORMALIZED RATIO 3.4; PROTHROMBIN TIME 36.2 (9.2-11.2)
[2017-04-26 08:15] LABS: HEMATOCRIT 29.9 % (38.0-50.0); MCH 29.3 PG (29.0-34.0); MCHC 30.4 G/DL (30.0-36.0); MCV 96.1 FL (86-99); MEAN PLAT.VOLUME 10.4 uM^3 (9.0-12.4); PLATELET COUNT 238 K/uL (156-360); RBC DIS.WIDTH-SD 62.9 % (39-53); RED BLOOD COUNT 3.11 M/uL (4.00-5.50); WHITE BLOOD COUNT 6.6 K/uL (4.1-10.2)
[2017-04-26 15:33] VITALS: BP 158/70
== END 2017-04-26 20:10 | disposition home or self-care (01) | DRG 862 ==
LOC: EME 18:44 → 3EAST 22:51 → EDOF 22:51 → 3EAST 04-23 00:08
PROVIDERS: Emergency Medicine; Hospitalist; Internal Medicine; Internal Medicine Nephrology; Physician Assistant
PROC: 5A1D60Z (ICD-10-PCS; principal; 2017-04-23)
PROC: 5A09357 Assistance with Respiratory Ventilation, Less than 24 Consecutive Hours, Continuous Positive Airway Pressure (ICD-10-PCS; 2017-04-24)
DX: T81.4XXA Infection following a procedure, initial encounter (principal); L03.312 Cellulitis of back [any part except buttock and flank]; L02.212 Cutaneous abscess of back [any part, except buttock and flank]; T81.89XA Other complications of procedures, not elsewhere classified, initial encounter; I13.2 Hypertensive heart and chronic kidney disease with heart failure and with stage 5 chronic kidney disease, or end stage renal disease; N18.6 End stage renal disease; R79.1 Abnormal coagulation profile; I50.9 Heart failure, unspecified; D63.8 Anemia in other chronic diseases classified elsewhere; E11.22 Type 2 diabetes mellitus with diabetic chronic kidney disease; E11.42 Type 2 diabetes mellitus with diabetic polyneuropathy; E11.51 Type 2 diabetes mellitus with diabetic peripheral angiopathy without gangrene; J44.9 Chronic obstructive pulmonary disease, unspecified; I48.2 Chronic atrial fibrillation; E78.5 Hyperlipidemia, unspecified; G47.33 Obstructive sleep apnea (adult) (pediatric); R09.02 Hypoxemia; J98.11 Atelectasis; I25.10 Atherosclerotic heart disease of native coronary artery without angina pectoris; N40.1 Benign prostatic hyperplasia with lower urinary tract symptoms; R33.8 Other retention of urine; G83.4 Cauda equina syndrome; F32.9 Major depressive disorder, single episode, unspecified; Y83.8 Other surgical procedures as the cause of abnormal reaction of the patient, or of later complication, without mention of misadventure at the time of the procedure; E66.9 Obesity, unspecified; Z68.34 Body mass index [BMI] 34.0-34.9, adult; Z79.01 Long term (current) use of anticoagulants; Z86.018 Personal history of other benign neoplasm; Z85.528 Personal history of other malignant neoplasm of kidney; Z87.01 Personal history of pneumonia (recurrent); Z87.891 Personal history of nicotine dependence; Z95.5 Presence of coronary angioplasty implant and graft; Z99.2 Dependence on renal dialysis
CPT/HCPCS: 71010; 71020; 80048; 80048 91; 80069; 81003; 82948; 83605; 85025; 85027; 85610; 85651; 86140; 87040; 87070; 87075; 87205; 87340; 94640 76; 94760; 94799; 99281; 99285; A6212; G0378; J0881; J3370

== ENCOUNTER 2017-05-13 14:14 | Inpatient (IN) | payer OTHER, BC ==
[~2017-05-13] VITALS: Ht 177.8 cm; Wt 105.1 kg
[~2017-05-13 14:14] MED LIST changes: +LO-DOSE ASPIRIN81 M2 PO
[2017-05-13 15:50] LABS: HEMATOCRIT 34.2 % (38.0-50.0); MCH 28.9 PG (29.0-34.0); MCHC 31.3 G/DL (30.0-36.0); MCV 92.4 FL (86-99); MEAN PLAT.VOLUME 10.9 uM^3 (9.0-12.4); PLATELET COUNT 193 K/uL (156-360); RBC DIS.WIDTH-SD 61.9 % (39-53); WHITE BLOOD COUNT 15.6 K/uL (4.1-10.2)
[2017-05-13 16:00] LABS: CHLORIDE 94 mEq/L (99-109); POTASSIUM 4.2 mEq/L (3.7-5.4); SODIUM 134 mEq/L (136-147)
[2017-05-13 16:02] LABS: GLUCOSE 112 mg/dL (70-99)
[2017-05-13 16:03] LABS: ANION GAP 16 MEQ/L (2-14)
[2017-05-13 16:04] LABS: TOTAL BILIRUBIN 0.6 mg/dL (0.0-1.0)
[2017-05-13 16:05] LABS: ALKALINE PHOSPHATASE 102 IU/L (3-129)
[2017-05-13 16:06] LABS: GFR ESTIMATE (CALCULATED) 8 mL/min/
[2017-05-13 16:07] LABS: DIRECT BILIRUBIN 0.2 mg/dL (0.0-0.3); UREA NITROGEN (BUN) 28 mg/dL (9-23)
[2017-05-13 16:09] LABS: LIPASE 7 U/L (1.0-51.0)
[2017-05-13 16:10] LABS: TROP-I INTERPRETATION NEGATIVE; TROPONIN-I < 0.01 ng/mL (0.0-0.30)
[2017-05-13 17:01] LABS: ADD MIUA? YES; BILIRUBIN NEGATIVE; BLOOD NEGATIVE; COLOR YELLOW ((YELLOW)); GLUCOSE (STRIP) 50; KETONES NEGATIVE; LEUKOCYTES NEGATIVE; NITRITE NEGATIVE; PROTEIN (STRIP) >=500; UROBILINOGEN 0.2 MG/DL (0.2-1.0)
[2017-05-13 17:09] LABS: BACTERIA RARE /HPF; EPITHELIAL CELLS RARE /HPF; HYALINE CASTS 0-5 /LPF; MUCUS TRACE /LPF; RED BLOOD CELLS 0-5 /HPF (0-5); WHITE BLOOD CELLS 0-5 /HPF (0-5)
[2017-05-13] MEDS ORDERED: SPIRIVA RESPIMAT4 GM IH (18:31)
[2017-05-13] MEDS ORDERED: FLOMAX0.4 MG PO (18:35)
[2017-05-13] MEDS ORDERED: COUMADIN3 MG PO (18:36)
[2017-05-13] MEDS ORDERED: COLACE100 MG PO (18:40)
[2017-05-13] MEDS ORDERED: PRILOSEC20 MG PO (18:41)
[2017-05-13] MEDS ORDERED: PROBIOTIC1 EAC2 PO (18:43)
[2017-05-13] MEDS ORDERED: SIMVASTATIN20 MG PO (18:44)
[2017-05-13 21:17] LABS: INTER. NORMALIZED RATIO 1.4; PROTHROMBIN TIME 14.4 (9.2-11.2)
[2017-05-13 21:51] VITALS: BP 132/64
[2017-05-13 21:54] LABS: C-REACTIVE PROTEIN 134.9 MG/L (0-10)
[2017-05-14 00:24] VITALS: BP 177/78
[2017-05-14 08:22] VITALS: BP 155/79
[2017-05-14 10:39] LABS: HEMATOCRIT 28.9 % (38.0-50.0); MCH 29.7 PG (29.0-34.0); MCHC 32.5 G/DL (30.0-36.0); MCV 91.5 FL (86-99); MEAN PLAT.VOLUME 10.7 uM^3 (9.0-12.4); PLATELET COUNT 161 K/uL (156-360); RBC DIS.WIDTH-SD 60.1 % (39-53); RED BLOOD COUNT 3.16 M/uL (4.00-5.50)
[2017-05-14 11:06] LABS: ALKALINE PHOSPHATASE 76 IU/L (3-129); ANION GAP 14 MEQ/L (2-14); CHLORIDE 95 MEQ/L (99-109); GFR ESTIMATE (CALCULATED) 8 mL/min/; GLUCOSE 161 mg/dL (70-99); POTASSIUM 3.7 MEQ/L (3.7-5.4); SAMPLE HEMOLYSIS CHECK 0; SAMPLE ICTERIC CHECK 0; SAMPLE LIPEMIA CHECK 0; SODIUM 132 MEQ/L (136-147); TOTAL BILIRUBIN 0.5 MG/DL (0.0-1.0); UREA NITROGEN (BUN) 37 mg/dL (9-23)
[2017-05-14 12:15] LABS: INTER. NORMALIZED RATIO 1.4; PROTHROMBIN TIME 14.4 (9.2-11.2)
[2017-05-14 15:10] VITALS: BP 155/70
[2017-05-14 20:00] VITALS: BP 125/78
[2017-05-14 21:44] LABS: POINT-OF-CARE METER ID UU13113717
[2017-05-14 22:22] LABS: ALKALINE PHOSPHATASE 77 IU/L (3-129); ANION GAP 13 MEQ/L (2-14); CHLORIDE 100 MEQ/L (99-109); GFR ESTIMATE (CALCULATED) 15 mL/min/; MAGNESIUM 1.7 mg/dl (1.3-2.7); POTASSIUM 3.8 MEQ/L (3.7-5.4); SAMPLE HEMOLYSIS CHECK 0; SAMPLE ICTERIC CHECK 0; SAMPLE LIPEMIA CHECK 0; SODIUM 136 MEQ/L (136-147); TOTAL BILIRUBIN 0.5 MG/DL (0.0-1.0)
[2017-05-14 22:27] LABS: GLUCOSE 111 mg/dL (70-99); UREA NITROGEN (BUN) 16 mg/dL (9-23)
[2017-05-14 22:38] LABS: TROP-I INTERPRETATION NEGATIVE; TROPONIN-I 0.01 ng/mL (0.0-0.30)
[2017-05-14 23:31] VITALS: BP 117/70
[2017-05-15 04:08] VITALS: BP 156/75
[2017-05-15 05:48] LABS: BASOPHIL COUNT 0.1 K/uL (0-0.1); EOSINOPHIL (%) 2.8 % (0-5); EOSINOPHIL COUNT 0.3 K/uL (0-0.3); HEMATOCRIT 30.2 % (38.0-50.0); IMMATURE GRANULOCYTE (%) 0.6 % (0.0-0.7); IMMATURE GRANULOCYTE COUNT 0.1 K/uL; INSTRUMENT ABS NEUTROPHIL CT 5.7 K/uL; LYMPHOCYTE COUNT 1.6 K/uL (1.0-2.8); MCH 28.6 PG (29.0-34.0); MCHC 30.8 G/DL (30.0-36.0); MCV 92.9 FL (86-99); MEAN PLAT.VOLUME 11.2 uM^3 (9.0-12.4); MONOCYTE (%) 13.9 % (3-12); MONOCYTE COUNT 1.2 K/uL (0-0.8); NEUTROPHIL (%) 64.3 % (45-76); NEUTROPHIL COUNT 5.7 K/uL (1.8-6.4); PLATELET COUNT 173 K/uL (156-360); RBC DIS.WIDTH-CV 18.1 % (11.8-14.6); RED BLOOD COUNT 3.25 M/uL (4.00-5.50); WHITE BLOOD COUNT 8.9 K/uL (4.1-10.2)
[2017-05-15 06:15] LABS: ALKALINE PHOSPHATASE 77 IU/L (3-129); ANION GAP 13 MEQ/L (2-14); CHLORIDE 101 MEQ/L (99-109); GFR ESTIMATE (CALCULATED) 14 mL/min/; GLUCOSE 97 mg/dL (70-99); POTASSIUM 3.8 MEQ/L (3.7-5.4); SAMPLE HEMOLYSIS CHECK 0; SAMPLE ICTERIC CHECK 0; SAMPLE LIPEMIA CHECK 0; SODIUM 139 MEQ/L (136-147); TOTAL BILIRUBIN 0.4 MG/DL (0.0-1.0); UREA NITROGEN (BUN) 20 mg/dL (9-23)
[2017-05-15 06:30] LABS: INTER. NORMALIZED RATIO 1.5; PROTHROMBIN TIME 15.2 (9.2-11.2)
[2017-05-15 07:10] VITALS: BP 140/75
[2017-05-15 11:05] VITALS: BP 145/71
[2017-05-15 16:00] VITALS: BP 169/71
[2017-05-15 16:47] LABS: POINT-OF-CARE METER ID UU13113717
[2017-05-15 20:04] VITALS: BP 167/77
[2017-05-15 23:44] VITALS: BP 161/77
[2017-05-16 03:40] VITALS: BP 143/73
[2017-05-16 08:13] VITALS: BP 171/74
[2017-05-16 08:25] LABS: BASOPHIL COUNT 0.1 K/uL (0-0.1); EOSINOPHIL (%) 3.6 % (0-5); EOSINOPHIL COUNT 0.3 K/uL (0-0.3); HEMATOCRIT 28.3 % (38.0-50.0); IMMATURE GRANULOCYTE (%) 0.4 % (0.0-0.7); INSTRUMENT ABS NEUTROPHIL CT 4.9 K/uL; LYMPHOCYTE COUNT 1.3 K/uL (1.0-2.8); MCH 28.5 PG (29.0-34.0); MCHC 31.4 G/DL (30.0-36.0); MCV 90.7 FL (86-99); MEAN PLAT.VOLUME 11.1 uM^3 (9.0-12.4); MONOCYTE (%) 10.7 % (3-12); MONOCYTE COUNT 0.8 K/uL (0-0.8); NEUTROPHIL (%) 66.6 % (45-76); NEUTROPHIL COUNT 4.9 K/uL (1.8-6.4); PLATELET COUNT 184 K/uL (156-360); RBC DIS.WIDTH-CV 17.9 % (11.8-14.6); RED BLOOD COUNT 3.12 M/uL (4.00-5.50); WHITE BLOOD COUNT 7.3 K/uL (4.1-10.2)
[2017-05-16 08:57] LABS: ALKALINE PHOSPHATASE 68 IU/L (3-129); ANION GAP 11 MEQ/L (2-14); CHLORIDE 100 MEQ/L (99-109); POTASSIUM 3.5 MEQ/L (3.7-5.4); SAMPLE HEMOLYSIS CHECK 0; SAMPLE ICTERIC CHECK 0; SAMPLE LIPEMIA CHECK 0; SODIUM 135 MEQ/L (136-147); TOTAL BILIRUBIN 0.4 MG/DL (0.0-1.0)
[2017-05-16 09:02] LABS: GFR ESTIMATE (CALCULATED) 10 mL/min/; GLUCOSE 184 mg/dL (70-99); TOBRAMYCIN (TROUGH) 4.1 MCG/ML (0-1.0); UREA NITROGEN (BUN) 31 mg/dL (9-23)
[2017-05-16 09:12] LABS: INTER. NORMALIZED RATIO 1.5; PROTHROMBIN TIME 15.7 (9.2-11.2)
[2017-05-16 09:22] LABS: VANCOMYCIN, TROUGH 10.5 MCG/ML (10-20)
[2017-05-16 13:09] LABS: POINT-OF-CARE METER ID UU14174225
[2017-05-16 13:13] VITALS: BP 160/75
[2017-05-16 16:48] LABS: POINT-OF-CARE METER ID UU14174225
[2017-05-16 17:19] VITALS: BP 140/82
[2017-05-16 20:11] VITALS: BP 179/82
[2017-05-16 21:16] LABS: POINT-OF-CARE METER ID UU13113717
[2017-05-16 23:49] VITALS: BP 171/84
[2017-05-17 03:54] VITALS: BP 152/73
[2017-05-17 08:25] VITALS: BP 187/79
[2017-05-17 10:47] LABS: INTER. NORMALIZED RATIO 1.7; PROTHROMBIN TIME 18.9 SEC (10.2-12.9)
[2017-05-17 12:20] LABS: POINT-OF-CARE METER ID UU14174225
[2017-05-17 12:52] VITALS: BP 148/78
[2017-05-17] MEDS ORDERED: NEBCIN40 MG/ML IV ×2 (13:12→13:20)
[2017-05-17] MEDS ORDERED: VANCOMYCIN HCL1 GM IV ×2 (13:12→13:20)
[2017-05-17] MEDS ORDERED: FLORASTOR250 MG PO (14:25)
== END 2017-05-17 14:32 | disposition home or self-care (01) | DRG 864 ==
LOC: EME 14:14 → EDOF 19:46 → 5SOUTH 19:46
PROVIDERS: Emergency Medicine; Hospitalist
DX: R50.9 Fever, unspecified (principal); J18.9 Pneumonia, unspecified organism; J96.01 Acute respiratory failure with hypoxia; N18.6 End stage renal disease; L03.319 Cellulitis of trunk, unspecified; L02.219 Cutaneous abscess of trunk, unspecified; N39.0 Urinary tract infection, site not specified; J90 Pleural effusion, not elsewhere classified; T81.4XXA Infection following a procedure, initial encounter; T81.31XA Disruption of external operation (surgical) wound, not elsewhere classified, initial encounter; M46.20 Osteomyelitis of vertebra, site unspecified; I48.0 Paroxysmal atrial fibrillation; M10.9 Gout, unspecified; I25.10 Atherosclerotic heart disease of native coronary artery without angina pectoris; I50.9 Heart failure, unspecified; I13.2 Hypertensive heart and chronic kidney disease with heart failure and with stage 5 chronic kidney disease, or end stage renal disease; I31.3 Pericardial effusion (noninflammatory); J98.11 Atelectasis; E11.22 Type 2 diabetes mellitus with diabetic chronic kidney disease; E78.5 Hyperlipidemia, unspecified; G47.33 Obstructive sleep apnea (adult) (pediatric); E66.9 Obesity, unspecified; M48.06 Spinal stenosis, lumbar region; M51.36 Other intervertebral disc degeneration, lumbar region; C18.9 Malignant neoplasm of colon, unspecified; B96.20 Unspecified Escherichia coli [E. coli] as the cause of diseases classified elsewhere; T81.89XA Other complications of procedures, not elsewhere classified, initial encounter; Z79.82 Long term (current) use of aspirin; Z68.33 Body mass index [BMI] 33.0-33.9, adult; Z85.528 Personal history of other malignant neoplasm of kidney; Z90.5 Acquired absence of kidney; Z87.01 Personal history of pneumonia (recurrent); Z87.891 Personal history of nicotine dependence; Z95.5 Presence of coronary angioplasty implant and graft; Z99.2 Dependence on renal dialysis; Z80.8 Family history of malignant neoplasm of other organs or systems; Z82.49 Family history of ischemic heart disease and other diseases of the circulatory system
CPT/HCPCS: 71010; 71020; 71250; 72131; 76882; 80048; 80053; 80076; 80200; 80202; 81003; 82948; 83605; 83690; 83735; 83880; 84100; 84484; 85025; 85027; 85610; 85651; 86140; 87040; 87077; 87086; 87186; 93005; 93306; 94640; 94640 76; 94799; 97166 GO; 97530 GO; 99281; 99285; A6260; G8987 GO; G8988 GO; J0881; J1644; J1815; J1940; J2543; J3260; J3370; J7050

== ENCOUNTER 2017-05-28 09:57 | Inpatient (IN) | payer OTHER, BC ==
[~2017-05-28] VITALS: Ht 180.3 cm; Wt 103.5 kg
[~2017-05-28 09:57] MED LIST changes: +COUMADIN1 MG PO; +FLORASTOR250 MG PO; +PROBIOTIC1 EAC2 PO; +VANCOMYCIN HCL1 GM IV
[2017-05-28 11:14] LABS: HEMATOCRIT 31.9 % (38.0-50.0); MCH 27.7 PG (29.0-34.0); MCHC 30.4 G/DL (30.0-36.0); MCV 91.1 FL (86-99); MEAN PLAT.VOLUME 10.8 uM^3 (9.0-12.4); PLATELET COUNT 185 K/uL (156-360); RBC DIS.WIDTH-CV 19.3 % (11.8-14.6); RBC DIS.WIDTH-SD 64.3 % (39-53); WHITE BLOOD COUNT 15.4 K/uL (4.1-10.2)
[2017-05-28 11:23] LABS: CHLORIDE 97 mEq/L (99-109); POTASSIUM 4.3 mEq/L (3.7-5.4); SODIUM 133 mEq/L (136-147)
[2017-05-28 11:25] LABS: GLUCOSE 163 mg/dL (70-99)
[2017-05-28 11:26] LABS: ANION GAP 16 MEQ/L (2-14)
[2017-05-28 11:29] LABS: GFR ESTIMATE (CALCULATED) 7 mL/min/; UREA NITROGEN (BUN) 46 mg/dL (9-23)
[2017-05-28 12:03] LABS: TOTAL BILIRUBIN 0.5 mg/dL (0.0-1.0)
[2017-05-28 12:04] LABS: ALKALINE PHOSPHATASE 80 IU/L (3-129)
[2017-05-28 12:07] LABS: DIRECT BILIRUBIN 0.2 mg/dL (0.0-0.3)
[2017-05-28 12:08] LABS: LIPASE 12 U/L (1.0-51.0)
[2017-05-28 12:26] LABS: VANCOMYCIN, TROUGH 11.7 MCG/ML (10-20)
[2017-05-28] MEDS ORDERED: MYSOLINE50 MG PO (14:05)
[2017-05-28] MEDS ORDERED: BYSTOLIC5 MG PO (14:08)
[2017-05-28 20:18] VITALS: BP 149/71
[2017-05-28 21:09] LABS: INTER. NORMALIZED RATIO 1.8; PROTHROMBIN TIME 20.5 SEC (10.2-12.9)
[2017-05-28 23:46] VITALS: BP 143/64
[2017-05-29 03:46] VITALS: BP 161/77
[2017-05-29 06:39] LABS: INTER. NORMALIZED RATIO 1.9; PROTHROMBIN TIME 20.9 SEC (10.2-12.9)
[2017-05-29 07:41] VITALS: BP 144/75
[2017-05-29 09:22] LABS: HEMATOCRIT 29.8 % (38.0-50.0); MCH 29.3 PG (29.0-34.0); MCHC 31.9 G/DL (30.0-36.0); MEAN PLAT.VOLUME 10.8 uM^3 (9.0-12.4); PLATELET COUNT 207 K/uL (156-360); RBC DIS.WIDTH-CV 19.1 % (11.8-14.6); RBC DIS.WIDTH-SD 63.5 % (39-53); RED BLOOD COUNT 3.24 M/uL (4.00-5.50); WHITE BLOOD COUNT 10.3 K/uL (4.1-10.2)
[2017-05-29 09:58] LABS: ANION GAP 11 MEQ/L (2-14); CHLORIDE 100 MEQ/L (99-109); POTASSIUM 3.9 MEQ/L (3.7-5.4); SAMPLE HEMOLYSIS CHECK 0; SAMPLE ICTERIC CHECK 0; SAMPLE LIPEMIA CHECK 0; SODIUM 136 MEQ/L (136-147)
[2017-05-29 10:03] LABS: GFR ESTIMATE (CALCULATED) 13 mL/min/; GLUCOSE 160 mg/dL (70-99); UREA NITROGEN (BUN) 24 mg/dL (9-23)
[2017-05-29 11:06] VITALS: BP 141/65
[2017-05-29 15:25] VITALS: BP 162/76
[2017-05-29 19:38] VITALS: BP 183/84
[2017-05-29 23:55] VITALS: BP 167/77
[2017-05-30 04:23] VITALS: BP 129/60
[2017-05-30 07:25] VITALS: BP 144/76
[2017-05-30 08:32] LABS: HEMATOCRIT 28.7 % (38.0-50.0); MCHC 32.1 G/DL (30.0-36.0); MCV 90.5 FL (86-99); MEAN PLAT.VOLUME 10.9 uM^3 (9.0-12.4); PLATELET COUNT 226 K/uL (156-360); RBC DIS.WIDTH-SD 63.7 % (39-53); RED BLOOD COUNT 3.17 M/uL (4.00-5.50); WHITE BLOOD COUNT 10.4 K/uL (4.1-10.2)
[2017-05-30 08:45] LABS: ANION GAP 12 MEQ/L (2-14); CHLORIDE 98 MEQ/L (99-109); POTASSIUM 3.5 MEQ/L (3.7-5.4); SAMPLE HEMOLYSIS CHECK 0; SAMPLE ICTERIC CHECK 0; SAMPLE LIPEMIA CHECK 0; SODIUM 135 MEQ/L (136-147)
[2017-05-30 08:52] LABS: GFR ESTIMATE (CALCULATED) 10 mL/min/; GLUCOSE 195 mg/dL (70-99); UREA NITROGEN (BUN) 36 mg/dL (9-23)
[2017-05-30 13:20] LABS: VANCOMYCIN, TROUGH 15.9 MCG/ML (10-20)
[2017-05-30 15:11] VITALS: BP 174/79
[2017-05-30 19:22] VITALS: BP 173/79
[2017-05-31] VITALS (7 sets, daily range): BP systolic 142–165; BP diastolic 69–83
[2017-05-31 06:31] LABS: HEMATOCRIT 29.3 % (38.0-50.0); MCH 27.2 PG (29.0-34.0); MCV 90.4 FL (86-99); MEAN PLAT.VOLUME 10.1 uM^3 (9.0-12.4); PLATELET COUNT 227 K/uL (156-360); RBC DIS.WIDTH-CV 18.7 % (11.8-14.6); RBC DIS.WIDTH-SD 62.2 % (39-53); RED BLOOD COUNT 3.24 M/uL (4.00-5.50); WHITE BLOOD COUNT 7.2 K/uL (4.1-10.2)
[2017-05-31 06:41] LABS: PROTHROMBIN TIME 22.6 SEC (10.2-12.9)
[2017-05-31 07:06] LABS: ANION GAP 11 MEQ/L (2-14); CHLORIDE 101 MEQ/L (99-109); GFR ESTIMATE (CALCULATED) 15 mL/min/; SAMPLE HEMOLYSIS CHECK 0; SAMPLE ICTERIC CHECK 0; SAMPLE LIPEMIA CHECK 0; SODIUM 139 MEQ/L (136-147); UREA NITROGEN (BUN) 22 mg/dL (9-23)
[2017-05-31 07:08] LABS: GLUCOSE 94 mg/dL (70-99)
[2017-06-01 06:39] LABS: INTER. NORMALIZED RATIO 2.1; PROTHROMBIN TIME 23.6 SEC (10.2-12.9)
[2017-06-01 06:49] LABS: VANCOMYCIN, TROUGH 20.5 MCG/ML (10-20)
[2017-06-01 08:16] VITALS: BP 183/83
[2017-06-01 08:18] LABS: HEMATOCRIT 31.5 % (38.0-50.0); MCH 28.6 PG (29.0-34.0); MCHC 31.4 G/DL (30.0-36.0); MEAN PLAT.VOLUME 10.5 uM^3 (9.0-12.4); PLATELET COUNT 264 K/uL (156-360); RBC DIS.WIDTH-CV 19.2 % (11.8-14.6); RED BLOOD COUNT 3.46 M/uL (4.00-5.50); WHITE BLOOD COUNT 7.4 K/uL (4.1-10.2)
[2017-06-01 08:43] LABS: ANION GAP 12 MEQ/L (2-14); CHLORIDE 103 MEQ/L (99-109); GFR ESTIMATE (CALCULATED) 11 mL/min/; GLUCOSE 104 mg/dL (70-99); SODIUM 141 MEQ/L (136-147); UREA NITROGEN (BUN) 30 mg/dL (9-23)
[2017-06-01 20:05] VITALS: BP 177/79
[2017-06-01 23:25] VITALS: BP 158/70
[2017-06-02 06:34] LABS: BASOPHIL COUNT 0.1 K/uL (0-0.1); EOSINOPHIL (%) 6.3 % (0-5); EOSINOPHIL COUNT 0.5 K/uL (0-0.3); HEMATOCRIT 32.5 % (38.0-50.0); IMMATURE GRANULOCYTE (%) 0.5 % (0.0-0.7); INSTRUMENT ABS NEUTROPHIL CT 4.1 K/uL; LYMPHOCYTE COUNT 1.8 K/uL (1.0-2.8); MCH 27.1 PG (29.0-34.0); MCHC 29.8 G/DL (30.0-36.0); MCV 90.8 FL (86-99); MEAN PLAT.VOLUME 9.9 uM^3 (9.0-12.4); MONOCYTE (%) 11.2 % (3-12); MONOCYTE COUNT 0.8 K/uL (0-0.8); NEUTROPHIL (%) 56.2 % (45-76); NEUTROPHIL COUNT 4.1 K/uL (1.8-6.4); PLATELET COUNT 289 K/uL (156-360); RBC DIS.WIDTH-CV 18.9 % (11.8-14.6); RBC DIS.WIDTH-SD 63.1 % (39-53); RED BLOOD COUNT 3.58 M/uL (4.00-5.50); WHITE BLOOD COUNT 7.3 K/uL (4.1-10.2)
[2017-06-02 07:00] LABS: ANION GAP 9 MEQ/L (2-14); CHLORIDE 100 MEQ/L (99-109); GFR ESTIMATE (CALCULATED) 17 mL/min/; GLUCOSE 92 mg/dL (70-99); POTASSIUM 3.7 MEQ/L (3.7-5.4); SAMPLE HEMOLYSIS CHECK 0; SAMPLE ICTERIC CHECK 0; SAMPLE LIPEMIA CHECK 0; SODIUM 138 MEQ/L (136-147); UREA NITROGEN (BUN) 17 mg/dL (9-23)
[2017-06-02 07:36] LABS: INTER. NORMALIZED RATIO 2.4; PROTHROMBIN TIME 27.4 SEC (10.2-12.9)
[2017-06-02 07:56] VITALS: BP 166/78
[2017-06-02 15:39] VITALS: BP 143/67
[2017-06-02 23:47] VITALS: BP 148/72
[2017-06-03 05:59] LABS: INTER. NORMALIZED RATIO 2.4; PROTHROMBIN TIME 26.9 SEC (10.2-12.9)
[2017-06-03 06:01] LABS: HEMATOCRIT 31.5 % (38.0-50.0); MCH 27.3 PG (29.0-34.0); MCHC 30.2 G/DL (30.0-36.0); MCV 90.5 FL (86-99); MEAN PLAT.VOLUME 9.8 uM^3 (9.0-12.4); PLATELET COUNT 285 K/uL (156-360); RBC DIS.WIDTH-CV 19.1 % (11.8-14.6); RBC DIS.WIDTH-SD 63.6 % (39-53); RED BLOOD COUNT 3.48 M/uL (4.00-5.50); WHITE BLOOD COUNT 7.1 K/uL (4.1-10.2)
[2017-06-03 06:48] LABS: ANION GAP 10 MEQ/L (2-14); CHLORIDE 103 MEQ/L (99-109); GFR ESTIMATE (CALCULATED) 12 mL/min/; GLUCOSE 103 mg/dL (70-99); POTASSIUM 3.9 MEQ/L (3.7-5.4); SAMPLE HEMOLYSIS CHECK 0; SAMPLE ICTERIC CHECK 0; SAMPLE LIPEMIA CHECK 0; SODIUM 141 MEQ/L (136-147)
[2017-06-03 07:05] LABS: UREA NITROGEN (BUN) 26 mg/dL (9-23)
[2017-06-03 07:19] VITALS: BP 156/72
[2017-06-03] MEDS ORDERED: CIPRO250 MG PO (13:10)
== END 2017-06-03 14:30 | disposition home or self-care (01) | DRG 193 ==
LOC: EME 09:57 → EDOF 13:49 → 5SOUTH 13:49 → ENRESERV 13:52 → ENRESERVTM 14:20 → ENRESERV 14:20 → 5SOUTH 20:00
PROVIDERS: Hospitalist; Internal Medicine; Internal Medicine Nephrology; Nurse Practitioner Adult Health; Physician Assistant
PROC: 5A09357 Assistance with Respiratory Ventilation, Less than 24 Consecutive Hours, Continuous Positive Airway Pressure (ICD-10-PCS; principal; 2017-05-28)
PROC: 5A1D60Z (ICD-10-PCS; principal; 2017-05-28)
DX: J18.9 Pneumonia, unspecified organism (principal); G47.33 Obstructive sleep apnea (adult) (pediatric); I13.2 Hypertensive heart and chronic kidney disease with heart failure and with stage 5 chronic kidney disease, or end stage renal disease; N18.6 End stage renal disease; I48.0 Paroxysmal atrial fibrillation; I50.9 Heart failure, unspecified; E11.22 Type 2 diabetes mellitus with diabetic chronic kidney disease; E11.40 Type 2 diabetes mellitus with diabetic neuropathy, unspecified; D63.1 Anemia in chronic kidney disease; E78.5 Hyperlipidemia, unspecified; I25.10 Atherosclerotic heart disease of native coronary artery without angina pectoris; J98.11 Atelectasis; M10.9 Gout, unspecified; N40.0 Benign prostatic hyperplasia without lower urinary tract symptoms; Z79.01 Long term (current) use of anticoagulants; Z99.2 Dependence on renal dialysis
CPT/HCPCS: 71010; 71020; 71250; 78315; 78805; 78999; 80048; 80048 91; 80076; 80202; 83605; 83690; 85025; 85027; 85610; 87040; 87070; 87205; 87651 90; 89051; 94799; 97530 GP; 99281; 99285; A9503; A9556; J0360; J0881; J2405; J2543; J3370; J7050

== ENCOUNTER 2017-08-14 03:00 | Emergency (ER) | payer OTHER, BC ==
[~2017-08-14] VITALS: Ht 177.8 cm; Wt 102.2 kg
[~2017-08-14 03:00] MED LIST changes: +BYSTOLIC5 MG PO; +CIPRO250 MG PO
[2017-08-14 04:07] VITALS: BP 147/69
== END 2017-08-14 04:08 | disposition home or self-care (01) ==
LOC: EME 03:00
DX: S20.229A Contusion of unspecified back wall of thorax, initial encounter (principal); W01.190A Fall on same level from slipping, tripping and stumbling with subsequent striking against furniture, initial encounter; I10 Essential (primary) hypertension; E78.5 Hyperlipidemia, unspecified; E11.40 Type 2 diabetes mellitus with diabetic neuropathy, unspecified; I25.10 Atherosclerotic heart disease of native coronary artery without angina pectoris; Z95.5 Presence of coronary angioplasty implant and graft; Z99.2 Dependence on renal dialysis; Z86.73 Personal history of transient ischemic attack (TIA), and cerebral infarction without residual deficits; Z79.01 Long term (current) use of anticoagulants; Z87.891 Personal history of nicotine dependence; Z88.8 Allergy status to other drugs, medicaments and biological substances
CPT/HCPCS: 72128; 72131; 85027; 85610; 99281; 99284